=== PATIENT | female | born 1980 | race Two or more races ===

== ENCOUNTER 2018-01-01 12:33 | Emergency (ER) | payer SELFPAY ==
[~2018-01-01] VITALS: Ht 157.5 cm; Wt 130.3 kg
[2018-01-01 13:13] VITALS: BP 129/71
[2018-01-01 13:19] LABS: Basophils # (auto) 0 uL; Basophils % (auto) 0.5 % (0.0-2.0); Eosinophils # (auto) 0.2 uL; Eosinophils % (auto) 2.5 % (0.0-7.0); Hematocrit 43.2 % (36.0-46.0); Hemoglobin 14.5 g/dL (12.2-16.2); Lymphocytes # (auto) 1.6 uL; Lymphocytes % (auto) 19.3 % (10.0-50.0); Mean Corpuscular Hemoglobin 30.8 pg (28.0-32.0); Mean Corpuscular Hgb Conc. 33.5 g/dL (32.0-36.0); Mean Corpuscular Volume 91.8 fL (80.0-100.0); Monocytes # (auto) 0.6 uL; Monocytes % (auto) 7.8 % (0.0-12.0); Neutrophils # (auto) 5.7 uL; Neutrophils % (auto) 69.9 % (37.0-80.0); Platelet Count (auto) 245 10^3/uL (140-450); Red Cell Distribution Width 13.6 % (11.8-14.3); White Blood Cell 8.2 10^3/uL (4.4-10.8)
[2018-01-01 13:38] LABS: Albumin 3.6 g/dL (3.4-5.0); BUN/Creatinine Ratio 15.2; Bilirubin, Total 0.4 mg/dL (0.2-1.0); Calcium 9.1 mg/dL (8.5-10.1); Potassium 4.3 mmol/L (3.5-5.1); Total Protein 7.9 g/dL (6.4-8.2)
[2018-01-01 14:14] LABS: Urine Bacteria NONE SEEN /hpf (None Seen); Urine Blood TRACE /uL (Negative); Urine Mucus FEW (None Seen); Urine WBC 6 /hpf (0 - 5)
[2018-01-01] MEDS ORDERED: MECLIZINE HCL 25 MG TAB PO ONE (14:30)
== END 2018-01-01 14:26 | disposition home or self-care (01) ==
LOC: ER 12:34
DX: F41.1 Generalized anxiety disorder (principal)
CPT/HCPCS: 36415; 70450; 80053; 81001; 81025; 85025

== ENCOUNTER 2018-04-07 14:25 | Emergency (ER) | payer SELFPAY ==
[~2018-04-07] VITALS: Ht 157.5 cm; Wt 117.9 kg
[2018-04-07 14:30] VITALS: BP 174/86
== END 2018-04-07 23:20 | disposition left against medical advice (07) ==
LOC: ER 14:31
DX: R10.9 Unspecified abdominal pain (principal); Z53.21 Procedure and treatment not carried out due to patient leaving prior to being seen by health care provider

== ENCOUNTER 2018-11-11 20:50 | Emergency (ER) | payer SELFPAY ==
[~2018-11-11] VITALS: Ht 157.5 cm; Wt 117.9 kg
[2018-11-12 00:25] VITALS: BP 140/76
[2018-11-12] MEDS ORDERED: BACLOFEN 10 MG TAB PO ONE (01:00)
[2018-11-12] MEDS ORDERED: ACETAMINOPHEN/CODEINE#3 (300/30mg) TAB PO ONE (01:00)
[2018-11-12] MEDS ORDERED: DexAMETHasone SOD PHOS 10MG/1ML VIAL INJ IM ONE (01:00)
== END 2018-11-12 01:30 | disposition home or self-care (01) ==
LOC: ER 20:50
DX: S46.912A Strain of unspecified muscle, fascia and tendon at shoulder and upper arm level, left arm, initial encounter (principal); Z98.51 Tubal ligation status; X50.0XXA Overexertion from strenuous movement or load, initial encounter; Y93.89 Activity, other specified; Y99.8 Other external cause status; Y92.89 Other specified places as the place of occurrence of the external cause
CPT/HCPCS: 73030; 96372; 99283; J1100

== ENCOUNTER 2019-02-21 16:01 | Emergency (ER) | payer OTHER ==
[~2019-02-21] VITALS: Ht 157.5 cm; Wt 123.4 kg
[2019-02-21 16:40] VITALS: BP 134/68
[2019-02-21] MEDS ORDERED: methylPREDNISolone SOD SUCC 125 MG/2 ML VL IM ONE (19:00)
[2019-02-21] MEDS ORDERED: KETOROLAC TROMETH 60MG/2ML VIAL IM ONE (19:00)
== END 2019-02-21 19:53 | disposition home or self-care (01) ==
LOC: ER 16:01
DX: S43.402A Unspecified sprain of left shoulder joint, initial encounter (principal); X50.0XXA Overexertion from strenuous movement or load, initial encounter; Y93.89 Activity, other specified; Y92.89 Other specified places as the place of occurrence of the external cause; Y99.0 Civilian activity done for income or pay
CPT/HCPCS: 73030; 96372; 99283; J1885; J2930

== ENCOUNTER 2022-12-27 15:59 | Emergency (ER) | payer MEDICAID ==
[~2022-12-27] VITALS: Ht 157.5 cm; Wt 127.0 kg
[2022-12-27 16:33] LABS: Urine Bacteria FEW /hpf (None Seen); Urine Blood Negative /uL (Negative); Urine Clarity Clear (Clear); Urine Color Yellow (Yellow); Urine Protein, UAD Negative (Negative); Urine Specific Gravity 1.026 (1.001-1.035); Urine Urobilinogen Normal (Negative); Urine WBC 1 /hpf (0 - 5); Urine pH 5.5 (5.0-8.0)
[2022-12-27 16:49] LABS: Basophils # (auto) 0 10 ^3/uL (0-0.2); Basophils % (auto) 0.5 % (0.0-2.0); Eosinophils # (auto) 0.3 10 ^3/uL (0-0.8); Eosinophils % (auto) 2.8 % (0.0-7.0); Hematocrit 38.5 % (36.0-46.0); Hemoglobin 12.9 g/dL (12.2-16.2); Lymphocytes # (auto) 1.6 10 ^3/uL (0.4-5.4); Lymphocytes % (auto) 17.3 % (10.0-50.0); Mean Corpuscular Hemoglobin 30.3 pg (28.0-32.0); Mean Corpuscular Hgb Conc. 33.5 g/dL (32.0-36.0); Mean Corpuscular Volume 90.5 fL (80.0-100.0); Monocytes # (auto) 0.7 10 ^3/uL (0-1.3); Monocytes % (auto) 7.6 % (0.0-12.0); Neutrophils # (auto) 6.4 10 ^3/uL (1.6-8.6); Neutrophils % (auto) 71.8 % (37.0-80.0); Red Blood Cells 4.26 10^6/uL (4.0-5.20); Red Cell Distribution Width 14.4 % (11.8-14.3)
[2022-12-27 17:11] LABS: Alanine Aminotransferase 29 U/L (7-40); Albumin 4.1 g/dL (3.2-4.8); Alkaline Phosphatase 101 U/L (46-116); Anion Gap 5 (5-15); Aspartate Aminotransferase 16 U/L (13-40); BUN/Creatinine Ratio 19.5 (10.0-20.0); Bilirubin, Total 0.3 mg/dL (0.2-1.0); Blood Urea Nitrogen 15 mg/dL (9-23); Calcium 8.9 mg/dL (8.7-10.4); Carbon Dioxide 28 mmol/L (20-30); Chloride 105 mmol/L (98-107); Glucose 127 mg/dL (74-106); Lipase 47 U/L (12-53); Sodium 138 mmol/L (136-145); Total Protein 6.9 g/dL (5.7-8.2)
[2022-12-27] MEDS ORDERED: ONDANSETRON HCL 4 MG/2 ML VIAL IM ONE (18:30)
[2022-12-27] MEDS ORDERED: KETOROLAC TROMETH 60MG/2ML VIAL IM ONE (18:30)
[2022-12-27] MEDS ORDERED: MORPHINE SULFATE INJ 2 MG/ml SYRG IM ONE (18:30)
[2022-12-27] MEDS ORDERED: HYDR-4902 PO (18:32)
[2022-12-27] MEDS ORDERED: ZOFR4T PO (18:32)
[2022-12-27] MEDS ORDERED: DOCU-94 PO (18:32)
[2022-12-27 18:42] VITALS: BP 142/60; PULSE 63; RESP 18; TEMP 98.1; O2SAT 99
== END 2022-12-27 19:12 | disposition home or self-care (01) ==
LOC: ER 15:59
DX: R10.33 Periumbilical pain (principal); K42.9 Umbilical hernia without obstruction or gangrene; K80.20 Calculus of gallbladder without cholecystitis without obstruction; Z98.890 Other specified postprocedural states; Z98.51 Tubal ligation status
CPT/HCPCS: 36415; 74176; 80053; 81001; 81025; 83690; 85025; 96372; 99285; J1885; J2405; J7030

== ENCOUNTER 2023-04-10 11:48 | Emergency (ER) | payer SELFPAY ==
[~2023-04-10] VITALS: Ht 157.5 cm; Wt 134.1 kg
[~2023-04-10 11:48] MED LIST: DOCU-94 PO; HYDR-4902 PO; ZOFR4T PO
[2023-04-10 13:12] VITALS: BP 145/82; PULSE 77; RESP 18; O2SAT 97
[2023-04-10] MEDS ORDERED: ACETAMINOPHEN 500 MG TAB PO ONE (13:15)
[2023-04-10] MEDS ORDERED: cefTRIAXone SOD 1,000 MG VL IM ONE (13:15)
[2023-04-10] MEDS ORDERED: AZIT500T66 PO (13:18)
[2023-04-10] MEDS ORDERED: PROM1SOL4 PO (13:18)
[2023-04-10 13:46] VITALS: TEMP 99
== END 2023-04-10 13:48 | disposition home or self-care (01) ==
LOC: ER 11:48
DX: J03.90 Acute tonsillitis, unspecified (principal); J06.9 Acute upper respiratory infection, unspecified; I10 Essential (primary) hypertension; E66.01 Morbid (severe) obesity due to excess calories; Z68.43 Body mass index [BMI] 50.0-59.9, adult; Z98.51 Tubal ligation status
CPT/HCPCS: 71045; 96372; 99283; J0696

== ENCOUNTER 2023-07-13 08:54 | Emergency (ER) | payer SELFPAY ==
[~2023-07-13] VITALS: Ht 157.5 cm; Wt 134.7 kg
[~2023-07-13 08:54] MED LIST changes: +AZIT500T66 PO; +PROM1SOL4 PO
[2023-07-13 09:28] VITALS: BP 138/96; PULSE 66; RESP 18; TEMP 98; O2SAT 98
[2023-07-13] MEDS: KETOROLAC TROMETH 60MG/2ML VIAL IM ONE (10:46)
[2023-07-13] MEDS ORDERED: MELO7.5T7 PO (11:49)
== END 2023-07-13 11:59 | disposition home or self-care (01) ==
LOC: ER 08:54
DX: M54.2 Cervicalgia (principal); I10 Essential (primary) hypertension; F41.9 Anxiety disorder, unspecified; Z98.890 Other specified postprocedural states; Z79.899 Other long term (current) drug therapy
CPT/HCPCS: 72040; 96372; 99283; J1885

== ENCOUNTER 2023-08-13 20:09 | Emergency (ER) | payer MEDICAID ==
[~2023-08-13] VITALS: Ht 157.5 cm; Wt 131.8 kg
[~2023-08-13 20:09] MED LIST changes: +MELO7.5T7 PO
[2023-08-13 23:16] VITALS: BP 162/89; PULSE 64; RESP 18; TEMP 97.9; O2SAT 99
== END 2023-08-14 02:02 | disposition home or self-care (01) ==
LOC: ER 20:09
DX: K42.9 Umbilical hernia without obstruction or gangrene (principal); N20.0 Calculus of kidney; I10 Essential (primary) hypertension; Z98.51 Tubal ligation status
CPT/HCPCS: 74176

== ENCOUNTER 2023-10-24 10:54 | Emergency (ER) | payer SELFPAY ==
[~2023-10-24] VITALS: Ht 157.5 cm; Wt 127.0 kg
[2023-10-24 11:46] LABS: Basophils # (auto) 0.1 10 ^3/uL (0-0.2); Basophils % (auto) 0.8 % (0.0-2.0); Eosinophils # (auto) 0.3 10 ^3/uL (0-0.8); Eosinophils % (auto) 3.7 % (0.0-7.0); Hematocrit 40.4 % (36.0-46.0); Hemoglobin 13.8 g/dL (12.2-16.2); Lymphocytes # (auto) 1.9 10 ^3/uL (0.4-5.4); Lymphocytes % (auto) 23.3 % (10.0-50.0); Mean Corpuscular Hemoglobin 31.1 pg (28.0-32.0); Mean Corpuscular Hgb Conc. 34.1 g/dL (32.0-36.0); Mean Corpuscular Volume 91.3 fL (80.0-100.0); Monocytes # (auto) 0.6 10 ^3/uL (0-1.3); Monocytes % (auto) 8.1 % (0.0-12.0); Neutrophils # (auto) 5.2 10 ^3/uL (1.6-8.6); Neutrophils % (auto) 64.1 % (37.0-80.0); Red Blood Cells 4.43 10^6/uL (4.0-5.20); Red Cell Distribution Width 14.1 % (11.8-14.3); White Blood Cell 8.1 10^3/uL (4.4-10.8)
[2023-10-24 11:53] LABS: Chloride 107 mmol/L (98-107); Potassium 4.2 mmol/L (3.5-5.1); Sodium 140 mmol/L (136-145)
[2023-10-24 11:54] LABS: Anion Gap 4 (5-15); Calcium 9.6 mg/dL (8.7-10.4); Carbon Dioxide 29 mmol/L (20-30)
[2023-10-24 11:59] LABS: Glucose 119 mg/dL (74-106)
[2023-10-24 12:21] LABS: BUN/Creatinine Ratio 13.1 (10.0-20.0); Blood Urea Nitrogen 11 mg/dL (9-23)
[2023-10-24] MEDS ORDERED: PANT40TA2 PO (14:10)
[2023-10-24 14:18] VITALS: BP 136/72; PULSE 68; RESP 16; TEMP 98.2; O2SAT 98
== END 2023-10-24 14:21 | disposition home or self-care (01) ==
LOC: ER 10:54
DX: K29.70 Gastritis, unspecified, without bleeding (principal); I10 Essential (primary) hypertension; Z98.51 Tubal ligation status; Z98.890 Other specified postprocedural states; Z98.891 History of uterine scar from previous surgery; Z79.899 Other long term (current) drug therapy
CPT/HCPCS: 36415; 80048; 85025

== ENCOUNTER 2024-02-23 16:32 | Emergency (ER) | payer SELFPAY ==
[~2024-02-23] VITALS: Ht 157.5 cm; Wt 63.1 kg
[~2024-02-23 16:32] MED LIST changes: +PANT40TA2 PO
[2024-02-23 18:21] VITALS: BP 161/70; PULSE 69; RESP 16; TEMP 98; O2SAT 100
[2024-02-23] MEDS ORDERED: IBUP-1456 PO (18:58)
--- NOTE | 2024-02-23 18:58 | ED.PDOC ---
Musculoskeletal HPI Comments 43 year old female presents to ER with complaints of left ankle pain x 3 days. Patient with PMH significant for chronic left ankle pain states that she started experiencing worsening left ankle pain/mild swelling surrounding left ankle 3 days ago s/p getting PRP injections to left ankle by her test deck supervisor. She reports 8/10 pain localized to left ankle without radiation. Denies use of medications for current symptoms. Patient presents to ER ambulatory on arrival, with steady gait, in no distress and states she is following up with her test deck supervisor again this week. Patient also states has been out of her blood pressure medications x 2 months, but is unsure the name/dosage of the blood pressure medications she is supposed to be taking, blood pressure on arrival 161/70, denying any hypertensive symptoms. Denies fever, body aches, chills, further skin changes, calf pain, shortness of breath or any further symptoms/complaints Chief Complaint: Lower Extremity Time Seen by MD: 18:10 Primary Care Provider: UNKNOWN Reviewed Notes: Nurses Notes, Medications, Allergies Allergies: Coded Allergies: NO KNOWN ALLERGIES (Unverified , 02/21/19) Home Meds Active Scripts Ibuprofen (Ibuprofen) 800 Mg Tab, 1 TAB PO TID PRN, #30 TAB 0 Refills Prov:RADHA DILLARD 02/23/24 Pantoprazole Sodium Sesquihydr (Protonix) 40 Mg Tab, 40 MG PO DAILY for 10 Days, #10 TAB Prov:DENVER HIGGINS MD 10/24/23 Meloxicam (Meloxicam) 7.5 Mg Tab, 1 TAB PO DAILYP PRN for 30 Days, #30 TAB 0 Refills Prov:AMI ABBOTT NP 07/13/23 Azithromycin (Azithromycin) 500 Mg Tab, 1 TAB PO DAILY, #5 TAB Prov:ED MANSFIELD 04/10/23 Promethazine-Dm (Promethazine Dm 6.25-15 mg/5Ml) 1 Mery Mery, 5 ML PO TID, #160 ML Prov:ED MANSFIELD 04/10/23 Docusate Sodium (Colace) 100 Mg Cap, 1 CAP PO BID for 10 Days, #20 CAP As needed for constipaton Prov:MINERVA SAMUELS HARNESS BUILDER 12/27/22 Ondansetron Odt 4MG Tab (ZOFRAN PO) 4 Mg Tb, 1 TAB PO Q8HR, #20 TAB ODT TAB-DISSOLVE IN MOUTH, THEN SWALLOW as needed for nausea vomit Prov:MINERVA SAMUELS Karrie COLMENARES 12/27/22 Hydrocodone-Acetaminophen (Hydrocodone Bitartrate/AC 5-325 mg) 1 Tab Tab, 1 TAB PO Q6HR, #12 TAB as needed for pain Prov:MINERVA SAMUELS HARNESS BUILDER 12/27/22 Information Source: Patient Mode of Arrival: Ambulatory Past Medical History PAST MEDICAL HISTORY: Anxiety, HTN Past Medical History (Other): Chronic left ankle pain Surgical History: , Tubal Ligation SPOOL FIXER History: Denies all SPOOL FIXER Hx Family History Family History: Unknown Social History Smoker: Non-Smoker Alcohol: Denies ETOH Use Drugs: Denies Drug Use Lives In: Home Constitutional: denies: chills, diaphoresis, fatigue, fever, malaise, sweats, weakness, others EENTM: denies: blurred vision, double vision, ear bleeding, ear discharge, ear drainage, ear pain, ear ringing, eye pain, eye redness, hearing loss, mouth pain, mouth swelling, nasal discharge, nose bleeding, nose congestion, nose pain, photophobia, tearing, throat pain, throat swelling, voice changes, others Respiratory: denies: cough, hemoptysis, orthopnea, SOB at rest, shortness of breath, SOB with excertion, stridor, wheezing, others Cardiovascular: denies: chest pain, dizzy spells, diaphoresis, Dyspnea on exertion, edema, irregular heart beat, left arm pain, lightheadedness, palpitations, PND, syncope, others Gastrointestinal: denies: abdomen distended, abdominal pain, blood streaked bowels, constipated, diarrhea, dysphagia, difficulty swallowing, hematemesis, melena, nausea, poor appetite, poor fluid intake, rectal bleeding, rectal pain, vomiting, others Genitourinary: denies: abnormal vagina bleeding, burning, dyspareunia, dysuria, flank pain, frequency, hematuria, incontinence, pain, , vagina discharge, urgency, others Neurological: denies: dizziness, fainting, headache, left sided numbness, left sided weakness, numbness, paresthesia, pre-existing deficit, right sided numbness, right sided weakness, seizure, speech problems, tingling, tremors, weakness, others Musculoskeletal: reports: others (As stated in HPI) Integumetry: reports: others (As stated in HPI) Allergic/Immunocompromised: denies: Difficulty Healing, Frequent Infections, Hives, Itching, others Hematologic/Lymphatic: denies: anemia, blood clots, easy bleeding, easy bruising, swollen glands, others Endocrine: denies: excessive hunger, excessive sweating, excessive thirst, excessive urination, flushing, intolerance to cold, intolerance to heat, unexplained weight gain, unexplained weight loss, others Psychiatric: denies: anxiety, bipolar disorder, depression, hopeless, panic disorder, schizophrenia, sleepless, suicidal, others Physical Exam General Appearance: No Apparent Distress HEENT: PERRL/EOMI Neck: Full Range of Motion, Non-Tender, Normal Respiratory: Chest Non-Tender, Lungs Clear, No Accessory Muscle Use, No Respiratory Distress, Normal Breath Sounds Cardiovascular: No Murmur, No Gallop, Regular Rate/Rhythm Breast Exam: Deferred Gastrointestinal: NOT DONE Genitalia: Deferred Pelvic: Deferred Rectal: Deferred Extremities: No calf tenderness, Normal capillary refill, Normal range of motion Musculoskeletal : Extremity Location: Ankle (Slight TTP/minimal swelling localized to left lateral malleolus. No erythema/further skin changes noted. Pulses intact. Steady gait appreciated) Neurologic: Alert, first aid trainer II-XII nml as Tested, No Motor Deficits, Normal Affect, Normal Mood, No Sensory Deficits Cerebellar Function: Normal Reflexes: Normal Skin: Dry, Normal Color, Warm Peripheral Pulses: 2+ dorsalis pedis (R), 2+ dorsalis pedis (L) Lymphatic: No Adenopathy Was a procedure done? Was a procedure done?: No Sedation Sedation?: No Differential Diagnosis EXT Differential Diagnosis: Cellulitis, Fracture, Dislocation, Neurovascular injury X-Ray, Labs, Meds, VS Vital Signs Date Time Temp Pulse Resp B/P (MAP) Pulse Ox O2 Delivery O2 Flow Rate FiO2 02/23/24 18:21 69 16 100 Room Air 02/23/24 18:21 98.0 69 16 161/70 (100) 100 98.0 02/23/24 17:27 98.0 69 16 161/70 (100) 100 Current Medications Medications (Trade) Dose Ordered Sig/Jodi Route Start Time Stop Time Status Last Admin Ketorolac Tromethamine (Toradol Injection) 60 mg ONCE ONCE IM 02/23/24 19:00 02/23/24 19:04 DC 02/23/24 19:07 Toradol 60 mg IM ordered Patient neurovascularly intact Advised on rest/no strenuous activity, elevation and alternate ice on/off as needed for pain/swelling Advised to monitor/record blood pressure readings closely at home Patient notes she is following up with her test deck supervisor again this week Patient provided information with regards to local PCPs and advised to follow up in 1-2 days Patient verbalized understanding and agreeable with current plan of care Advised to return to ER immediately if symptoms worsen Time of 1ST Reevaluation: 18:24 Reevaluation 1ST: N/A Patient Education/Counseling: Diagnosis, Treatment, Prognosis, Need For Follow Up Family Education/Counseling: No Family Present Departure 1 Departure Time of Disposition: 18:52 Impression: Primary Impression: Chronic pain of left ankle Disposition: 01 HOME / SELF CARE / HOMELESS Condition: Stable e-Prescriptions Ibuprofen (Ibuprofen) 800 Mg Tab 1 TAB PO TID PRN, #30 TAB 0 Refills Prov: RADHA DILLARD 02/23/24 Discharged With: Self Critical Care Note Critical Care Time?: No Stability Stability form required: No Heart Score Heart Score: Heart Score Response (Comments) Value History N/A 0 EKG N/A 0 Age N/A 0 Risk Factors N/A 0 Troponin N/A 0 Total 0 RADHA DILLARD Feb 23, 2024 18:58
[2024-02-23] MEDS: KETOROLAC TROMETH 60MG/2ML VIAL IM ONE (19:07)
== END 2024-02-23 19:38 | disposition home or self-care (01) ==
LOC: ER 16:32
DX: G89.29 Other chronic pain (principal); M25.572 Pain in left ankle and joints of left foot; I10 Essential (primary) hypertension; F41.9 Anxiety disorder, unspecified; Z79.899 Other long term (current) drug therapy; Z98.51 Tubal ligation status; Z98.890 Other specified postprocedural states
CPT/HCPCS: 96372; 99283; J1885

== ENCOUNTER 2024-03-19 15:55 | Emergency (ER) | payer MEDICAID ==
[~2024-03-19] VITALS: Ht 157.5 cm; Wt 113.0 kg
[~2024-03-19 15:55] MED LIST changes: +IBUP-1456 PO
--- NOTE | 2024-03-19 16:08 | ED.PDOC ---
History of Present Illness HPI Comments 43 year old female presents to the ED with chief complaint of hypertension. Patient reports that she had been experiencing headache with associated shakiness and nausea at work today, so she had her BP checked and it was high, advised to go to the local urgent care. Patient relays that in the , her BP was noted to be 193/106, advised to come to the ED for further evaluation. Patient states she has history of HTN and was on medication a year ago until she lost her insurance, being off her medication since then. Patient notes her family has a history of DM. Patient denies any vomiting, chest pain, SOB, dizziness, fever, chills, or dysuria. Time Seen by MD: 16:04 Primary Care Provider: UNKNOWN Reviewed Notes: Nurses Notes, Medications, Allergies Allergies: Coded Allergies: NO KNOWN ALLERGIES (Unverified , 02/21/19) Home Meds Active Scripts Losartan Potassium (Losartan Potassium) 50 Mg Tab, 1 TAB PO DAILY, #30 TAB 5 Refills Prov:FRANCIS ESPARZA MD 03/19/24 Ibuprofen (Ibuprofen) 800 Mg Tab, 1 TAB PO TID PRN, #30 TAB 0 Refills Prov:RADHA DILLARD 02/23/24 Pantoprazole Sodium Sesquihydr (Protonix) 40 Mg Tab, 40 MG PO DAILY for 10 Days, #10 TAB Prov:DENVER HIGGINS MD 10/24/23 Meloxicam (Meloxicam) 7.5 Mg Tab, 1 TAB PO DAILYP PRN for 30 Days, #30 TAB 0 Refills Prov:AMI ABBOTT NP 07/13/23 Azithromycin (Azithromycin) 500 Mg Tab, 1 TAB PO DAILY, #5 TAB Prov:ED MANSFIELD 04/10/23 Promethazine-Dm (Promethazine Dm 6.25-15 mg/5Ml) 1 Mery Mery, 5 ML PO TID, #160 ML Prov:ED MANSFIELD 04/10/23 Docusate Sodium (Colace) 100 Mg Cap, 1 CAP PO BID for 10 Days, #20 CAP As needed for constipaton Prov:MINERVA SAMUELS TABLE LEVER OPERATOR 12/27/22 Ondansetron Odt 4MG Tab (ZOFRAN PO) 4 Mg Tb, 1 TAB PO Q8HR, #20 TAB ODT TAB-DISSOLVE IN MOUTH, THEN SWALLOW as needed for nausea vomit Prov:MINERVA SAMUELS Karrie TABLE LEVER OPERATOR 12/27/22 Hydrocodone-Acetaminophen (Hydrocodone Bitartrate/AC 5-325 mg) 1 Tab Tab, 1 TAB PO Q6HR, #12 TAB as needed for pain Prov:MINERVA SAMUELS TABLE LEVER OPERATOR 12/27/22 Information Source: Patient Mode of Arrival: Ambulatory Severity: Moderate Timing: Hours Duration: Since onset Prehospital treatment: None Medication Refill: For: Hypertension Past Medical History PAST MEDICAL HISTORY: Anxiety, HTN Surgical History: , Tubal Ligation TEMPLATE FITTER History: Denies all TEMPLATE FITTER Hx Family History Family History: Reviewed,noncontributory to illness, Family hx of DM Social History Smoker: Non-Smoker Alcohol: Denies ETOH Use Drugs: Denies Drug Use Lives In: Home Constitutional: denies: chills, diaphoresis, fatigue, fever, malaise, sweats, weakness, others EENTM: denies: blurred vision, double vision, ear bleeding, ear discharge, ear drainage, ear pain, ear ringing, eye pain, eye redness, hearing loss, mouth pain, mouth swelling, nasal discharge, nose bleeding, nose congestion, nose pain, photophobia, tearing, throat pain, throat swelling, voice changes, others Respiratory: denies: cough, hemoptysis, orthopnea, SOB at rest, shortness of breath, SOB with excertion, stridor, wheezing, others Cardiovascular: denies: chest pain, dizzy spells, diaphoresis, Dyspnea on exertion, edema, irregular heart beat, left arm pain, lightheadedness, palpitations, PND, syncope, others Gastrointestinal: reports: nausea; denies: abdomen distended, abdominal pain, blood streaked bowels, constipated, diarrhea, dysphagia, difficulty swallowing, hematemesis, melena, poor appetite, poor fluid intake, rectal bleeding, rectal pain, vomiting, others Genitourinary: denies: abnormal vagina bleeding, burning, dyspareunia, dysuria, flank pain, frequency, hematuria, incontinence, pain, , vagina discharge, urgency, others Neurological: reports: headache, tremors; denies: dizziness, fainting, left sided numbness, left sided weakness, numbness, paresthesia, pre-existing deficit, right sided numbness, right sided weakness, seizure, speech problems, tingling, weakness, others Musculoskeletal: denies: back pain, gout, joint pain, joint swelling, muscle pain, muscle stiffness, neck pain, others Integumetry: denies: bruises, change in color, change in hair/nails, dryness, laceration, lesions, lumps, rash, wounds, others Allergic/Immunocompromised: denies: Difficulty Healing, Frequent Infections, Hives, Itching, others Hematologic/Lymphatic: denies: anemia, blood clots, easy bleeding, easy bruising, swollen glands, others Endocrine: denies: excessive hunger, excessive sweating, excessive thirst, excessive urination, flushing, intolerance to cold, intolerance to heat, unexplained weight gain, unexplained weight loss, others Psychiatric: denies: anxiety, bipolar disorder, depression, hopeless, panic disorder, schizophrenia, sleepless, suicidal, others All Other Systems: Reviewed and Negative Physical Exam General Appearance: No Apparent Distress, Obese HEENT: Other (Pupils symmetric, no facial asymmetry, moist mucous membranes) Neck: Full Range of Motion, Normal Inspection Respiratory: Lungs Clear, No Accessory Muscle Use, No Respiratory Distress, Normal Breath Sounds Cardiovascular: No Edema, No JVD, Regular Rate/Rhythm Breast Exam: Deferred Gastrointestinal: Non Tender, Soft Genitalia: Deferred Pelvic: Deferred Rectal: Deferred Extremities: Normal inspection, Normal range of motion, Non-tender, No pedal edema Neurologic: Alert (Oriented x4), Normal Affect, Normal Mood, Other (Ambulatory without difficulty. No gross focal deficit.) Cerebellar Function: NOT DONE Reflexes: NOT DONE Skin: Dry, Normal Color, Warm Lymphatic: NOT DONE Was a procedure done? Was a procedure done?: No EKG EKG : Comments Sinus rhythm, rate 75, normal intervals, left axis deviation, nonspecific T changes Differential Dx Considerations may include: Hypertension, CHF, renal disease, mi, among others X-Ray, Labs, Meds, VS Vital Signs Date Time Temp Pulse Resp B/P (MAP) Pulse Ox O2 Delivery O2 Flow Rate FiO2 03/19/24 17:54 73 18 73 Room Air* 0 21 03/19/24 17:54 98.0 73 18 133/62 (85) 97 98.0 03/19/24 17:27 75 03/19/24 16:06 98.0 68 17 150/69 (96) 100 Lab Test 03/19/24 18:04 03/19/24 17:03 03/19/24 16:32 Range/Units Troponin I High Sensitivity 3 L 4 </=34 ng/L White Blood Count 9.1 4.4-10.8 10^3/uL Red Blood Count 4.56 4.0-5.20 10^6/uL Hemoglobin 14.2 12.2-16.2 g/dL Hematocrit 41.5 36.0-46.0 % Mean Corpuscular Volume 91.1 80.0-100.0 fL Mean Corpuscular Hemoglobin 31.2 28.0-32.0 pg Mean Corpuscular Hemoglobin Concent 34.2 32.0-36.0 g/dL Red Cell Distribution Width 14.4 H 11.8-14.3 % Platelet Count 259 140-450 10^3/uL Mean Platelet Volume 8.0 6.9-10.8 fL Neutrophils (%) (Auto) 66.2 37.0-80.0 % Lymphocytes (%) (Auto) 23.2 10.0-50.0 % Monocytes (%) (Auto) 6.9 0.0-12.0 % Eosinophils (%) (Auto) 3.0 0.0-7.0 % Basophils (%) (Auto) 0.7 0.0-2.0 % Neutrophils # (Auto) 6.0 1.6-8.6 10 ^3/uL Lymphocytes # (Auto) 2.1 0.4-5.4 10 ^3/uL Monocytes # (Auto) 0.6 0-1.3 10 ^3/uL Eosinophils # (Auto) 0.3 0-0.8 10 ^3/uL Basophils # (Auto) 0.1 0-0.2 10 ^3/uL Nucleated Red Blood Cells 0.1 % Sodium Level 140 136-145 mmol/L Potassium Level 4.1 3.5-5.1 mmol/L Chloride Level 104 98-107 mmol/L Carbon Dioxide Level 28 20-31 mmol/L Anion Gap 8 5-15 Blood Urea Nitrogen 15 9-23 mg/dL Creatinine 0.77 0.550-1.02 mg/dL Glomerular Filtration Rate Calc 99 >90 mL/min BUN/Creatinine Ratio 19.5 10.0-20.0 Serum Glucose 97 74-106 mg/dL Hemoglobin A1c 5.8 H <5.7 % A1C Calcium Level 9.9 8.7-10.4 mg/dL B-Type Natriuretic Peptide 53.81 0-100 pg/mL Beta HCG, Quantitative < 0.0 L 1.5-4.2 mIU/mL Urine Color Light-yellow Yellow Urine Clarity Turbid H Clear Urine pH 6.0 5.0-9.0 Urine Specific [place] 1.021 1.001-1.035 Urine Protein Negative Negative Urine Ketones Negative Negative Urine Blood 3+ H Negative /uL Urine Nitrite Negative Negative Urine Bilirubin Negative Negative Urine Urobilinogen Normal Negative mg/dL Urine Leukocyte Esterase Negative Negative /uL Urine RBC 1 0 - 4 /hpf Urine WBC <1 0 - 5 /hpf Urine Squamous Epithelial Cells Mod <5 /hpf Urine Amorphous Crystals Few None Seen /hpf Urine Bacteria Few H None Seen /hpf Urine Mucus Few None Seen Urine Glucose Normal Normal mg/dL Current Medications Medications (Trade) Dose Ordered Sig/Jodi Route Start Time Stop Time Status Last Admin Ondansetron HCl (Zofran Po) 4 mg ONCE ONCE PO 03/19/24 16:15 03/19/24 16:16 DC 03/19/24 17:52 Acetaminophen (Tylenol Tablet) 1,000 mg ONCE ONCE PO 03/19/24 16:15 03/19/24 16:16 DC 03/19/24 17:52 Chest XR: FINDINGS: Lines and Tubes: None Lungs: Mild congestion Pleura: No effusion. No pneumothorax. Cardiomediastinal contours: Unremarkable Bones: Unremarkable IMPRESSION: Mild congestion. X-Ray, Labs, Meds, VS Comment 43-year-old female with a history of hypertension and anxiety referred by urgent care for evaluation of high blood pressure. Patient notes feeling shaky, having a headache and nausea. Vitals remarkable for BP 150/69 Exam unremarkable Rhythm strip independently interpreted by me: Sinus rhythm, rate 88, no ectopy. Chest x-ray IMPRESSION: Mild congestion. CBC, CMP, BNP and 1st troponin unremarkable for any abnormality of acute significance HCG negative UA unremarkable Hemoglobin A1c 5.8 Patient treated with the following in the ED: Tylenol 1 g p.o., Zofran ODT 4 mg p.o. On re-evaluation, patient is well-appearing and states headache and nausea have resolved. Blood pressure is 133/62. Hospitalization was considered, however patient had rapid improvement of symptoms without intervention during her stay in the ED. Blood pressure was not elevated to the point that she required medication in the ED. I no longer feel hospitalization is necessary, and I am co mfortable discharging the patient with a prescription for blood pressure medication and close follow-up with her primary doctor. Rx losartan Images Reviewed?: Images reviewed and evaluated by me Time of 1ST Reevaluation: 15:04 Reevaluation 1ST: Unchanged Time of 2ND Reevaluation: 18:19 Reevaluation 2ND: Improved Patient Education/Counseling: Diagnosis, Treatment Family Education/Counseling: No Family Present Departure 1 Departure Time of Disposition: 18:20 Impression: Primary Impression: Hypertension Qualified Codes: I10 - Essential (primary) hypertension Disposition: HOME / SELF CARE / HOMELESS Condition: Stable Additional Instructions: Your blood tests were unremarkable except for an elevated hemoglobin A1c of 5.8. This indicates you may be prediabetic. Your EKG was normal. Follow-up with your primary doctor in 1-2 days for re-evaluation. I have prescribed blood pressure medication. e-Prescriptions Losartan Potassium (Losartan Potassium) 50 Mg Tab 1 TAB PO DAILY, #30 TAB 5 Refills Prov: FRANCIS ESPARZA MD 03/19/24 Discharged With: Self Critical Care Note Critical Care Time?: No Stability Stability form required: No Heart Score Heart Score: Heart Score Response (Comments) Value History N/A 0 EKG N/A 0 Age N/A 0 Risk Factors N/A 0 Troponin N/A 0 Total 0 I personally scribed for FRANCIS ESPARZA MD ([email or web address]) on 03/19/24 at 16:08. Electronically submitted by Castro Salinas ([email or web address]). I personally scribed for FRANCIS ESPARZA MD ([email or web address]) on 03/19/24 at 17:02. Electronically submitted by Castro Salinas ([email or web address]). FRANCIS ESPARZA MD Mar 19, 2024 16:08
[2024-03-19 16:46] LABS: Urine Amorphous Crystal FEW /hpf (None Seen); Urine Bacteria FEW /hpf (None Seen); Urine Blood 3+ /uL (Negative); Urine Clarity Turbid (Clear); Urine Color Light-Yellow (Yellow); Urine Mucus FEW (None Seen); Urine Protein, UAD Negative (Negative); Urine Specific Gravity 1.021 (1.001-1.035); Urine Urobilinogen Normal (Negative); Urine WBC <1 /hpf (0 - 5)
--- NOTE | 2024-03-19 16:49 | DVH ---
CHEST RADIOGRAPH Indication: hi bp Technique: Single frontal view of the chest was obtained COMPARISON: XY CHEST XRAY 1 VIEW on DOS: 04/10/23, XY CHEST PORTABLE on DOS: 10/30/22 FINDINGS: Lines and Tubes: None Lungs: Mild congestion Pleura: No effusion. No pneumothorax. Cardiomediastinal contours: Unremarkable Bones: Unremarkable IMPRESSION: Mild congestion.
[2024-03-19 17:23] LABS: Basophils # (auto) 0.1 10 ^3/uL (0-0.2); Basophils % (auto) 0.7 % (0.0-2.0); Eosinophils # (auto) 0.3 10 ^3/uL (0-0.8); Hematocrit 41.5 % (36.0-46.0); Hemoglobin 14.2 g/dL (12.2-16.2); Lymphocytes # (auto) 2.1 10 ^3/uL (0.4-5.4); Lymphocytes % (auto) 23.2 % (10.0-50.0); Mean Corpuscular Hemoglobin 31.2 pg (28.0-32.0); Mean Corpuscular Hgb Conc. 34.2 g/dL (32.0-36.0); Mean Corpuscular Volume 91.1 fL (80.0-100.0); Monocytes # (auto) 0.6 10 ^3/uL (0-1.3); Monocytes % (auto) 6.9 % (0.0-12.0); Neutrophils % (auto) 66.2 % (37.0-80.0); Nucleated Red Blood Cells % 0.1 %; Platelet Count (auto) 259 10^3/uL (140-450); Red Blood Cells 4.56 10^6/uL (4.0-5.20); Red Cell Distribution Width 14.4 % (11.8-14.3); White Blood Cell 9.1 10^3/uL (4.4-10.8)
--- NOTE | 2024-03-19 17:28 | ECG ---
[facility] Test Date: 2024-03-19 Test Time: 17:27:45 Pat Name: BRENT BLACK Department: ER Room: Gender: F Cardiac Rehabilitation Program Director: GP : 1980 Requested By: FRANCIS ALEXANDRA Order Number: [id number] Reading MD: Dick Kee Measurements Intervals [place] Rate: 75 P: 44 HI: 160 QRS: -38 QRSD: 101 T: 57 QT: 400 QTc: 447 Interpretive Statements Sinus rhythm Left axis deviation Low voltage, precordial leads Electronically Signed On 03-24-2024 12:33:04 PST by Dick Kee Please click the below link to view image of tracing.
[2024-03-19 17:31] LABS: Chloride 104 mmol/L (98-107); Potassium 4.1 mmol/L (3.5-5.1); Sodium 140 mmol/L (136-145)
[2024-03-19 17:32] LABS: Anion Gap 8 (5-15); Calcium 9.9 mg/dL (8.7-10.4); Carbon Dioxide 28 mmol/L (20-31)
[2024-03-19 17:37] LABS: BUN/Creatinine Ratio 19.5 (10.0-20.0); Blood Urea Nitrogen 15 mg/dL (9-23); Glucose 97 mg/dL (74-106)
[2024-03-19] MEDS: ACETAMINOPHEN 500 MG TAB or CAP PO ONE (17:52)
[2024-03-19] MEDS: ONDANSETRON ODT 4 MG TAB PO ONE (17:52)
[2024-03-19 17:54] VITALS: BP 133/62; PULSE 73; RESP 18; TEMP 98; O2SAT 73
[2024-03-19] MEDS ORDERED: LOSA-534 PO (18:22)
== END 2024-03-19 18:40 | disposition home or self-care (01) ==
LOC: ER 15:55
DX: I10 Essential (primary) hypertension (principal); R10.2 Pelvic and perineal pain; Z79.899 Other long term (current) drug therapy; Z98.890 Other specified postprocedural states
CPT/HCPCS: 36415; 71045; 80048; 81001; 83036; 83880; 84484; 84702; 85025; 93005; 99285; Q0162

== ENCOUNTER 2024-07-27 17:19 | Emergency (ER) | payer MEDICAID, OTHER ==
[~2024-07-27] VITALS: Ht 157.5 cm; Wt 134.8 kg
[~2024-07-27 17:19] MED LIST changes: +LOSA-534 PO
[2024-07-27 17:59] LABS: Basophils # (auto) 0.1 10 ^3/uL (0-0.2); Basophils % (auto) 0.7 % (0.0-2.0); Eosinophils # (auto) 0.1 10 ^3/uL (0-0.8); Eosinophils % (auto) 1.4 % (0.0-7.0); Hematocrit 41.7 % (36.0-46.0); Hemoglobin 13.8 g/dL (12.2-16.2); Lymphocytes # (auto) 1.8 10 ^3/uL (0.4-5.4); Lymphocytes % (auto) 19.1 % (10.0-50.0); Mean Corpuscular Hemoglobin 31.1 pg (28.0-32.0); Mean Corpuscular Hgb Conc. 33.2 g/dL (32.0-36.0); Mean Corpuscular Volume 93.8 fL (80.0-100.0); Monocytes # (auto) 0.5 10 ^3/uL (0-1.3); Monocytes % (auto) 5.4 % (0.0-12.0); Neutrophils % (auto) 73.4 % (37.0-80.0); Platelet Count (auto) 250 10^3/uL (140-450); Red Blood Cells 4.44 10^6/uL (4.0-5.20); Red Cell Distribution Width 14.3 % (11.8-14.3); White Blood Cell 9.5 10^3/uL (4.4-10.8)
--- NOTE | 2024-07-27 18:12 | ED.PDOC ---
HPI Comments 44 y/o morbidly obese F, with PMHx of HTN presents to the ED for CC of chest pain. Patient states, that she has been experiencing substernal chest pain that occasionally radiates to her left arm x3days. Patient relays, that she recently started blood pressure medications [id number] ago; which have been non-optimal at stabilizing her hypertension. Patient denies shortness of breath, palpitations, numbness, or weakness. No other associated symptoms, modifiers, recent injuries or sick contacts present at this time. Chief Complaint: Chest Pain Time Seen by MD: 18:00 Primary Care Provider: du Reviewed Notes: Nurses Notes, Medications, Allergies Allergies: Coded Allergies: NO KNOWN ALLERGIES (Unverified , 02/21/19) Home Meds Active Scripts Losartan Potassium (Losartan Potassium) 50 Mg Tab, 1 TAB PO DAILY, #30 TAB 5 Refills Prov:FRANCIS ESPARZA MD 03/19/24 Ibuprofen (Ibuprofen) 800 Mg Tab, 1 TAB PO TID PRN, #30 TAB 0 Refills Prov:RADHA DILLARD 02/23/24 Pantoprazole Sodium Sesquihydr (Protonix) 40 Mg Tab, 40 MG PO DAILY for 10 Days, #10 TAB Prov:DENVER HIGGINS MD 10/24/23 Meloxicam (Meloxicam) 7.5 Mg Tab, 1 TAB PO DAILYP PRN for 30 Days, #30 TAB 0 Refills Prov:AMI ABBOTT NP 07/13/23 Azithromycin (Azithromycin) 500 Mg Tab, 1 TAB PO DAILY, #5 TAB Prov:ED MANSFIELD 04/10/23 Promethazine-Dm (Promethazine Dm 6.25-15 mg/5Ml) 1 Mery Mery, 5 ML PO TID, #160 ML Prov:ED MANSFIELD 04/10/23 Docusate Sodium (Colace) 100 Mg Cap, 1 CAP PO BID for 10 Days, #20 CAP As needed for constipaton Prov:MINERVA SAMUELS LICENSED ELECTRICIAN 12/27/22 Ondansetron Odt 4MG Tab (ZOFRAN PO) 4 Mg Tb, 1 TAB PO Q8HR, #20 TAB ODT TAB-DISSOLVE IN MOUTH, THEN SWALLOW as needed for nausea vomit Prov:MINERVA SAMUELS LICENSED ELECTRICIAN 12/27/22 Hydrocodone-Acetaminophen (Hydrocodone Bitartrate/AC 5-325 mg) 1 Tab Tab, 1 TAB PO Q6HR, #12 TAB as needed for pain Prov:MINERVA SAMUELS LICENSED ELECTRICIAN 12/27/22 Information Source: Patient Mode of Arrival: Ambulatory Severity: Moderate Timing: Days Duration: Since onset Prehospital treatment: None Location: Chest (L), Substernal Radiation: Arm (L) Onset: At Rest Cardiac Risk Factors: HTN PE Risk Factors: None History of: None Associated Signs and Symptoms: None Past Medical History PAST MEDICAL HISTORY: Anxiety, HTN Surgical History: , Tubal Ligation DIRECTOR DIGITAL CATALOGUE History: Denies all DIRECTOR DIGITAL CATALOGUE Hx Family History Family History: Reviewed,noncontributory to illness, Family hx of DM Social History Smoker: Non-Smoker Alcohol: Denies ETOH Use Drugs: Denies Drug Use Lives In: Home Constitutional: denies: chills, diaphoresis, fatigue, fever, malaise, sweats, weakness, others EENTM: denies: blurred vision, double vision, ear bleeding, ear discharge, ear drainage, ear pain, ear ringing, eye pain, eye redness, hearing loss, mouth pain, mouth swelling, nasal discharge, nose bleeding, nose congestion, nose ryan n, photophobia, tearing, throat pain, throat swelling, voice changes, others Respiratory: denies: cough, hemoptysis, orthopnea, SOB at rest, shortness of breath, SOB with excertion, stridor, wheezing, others Cardiovascular: reports: chest pain; denies: dizzy spells, diaphoresis, Dyspnea on exertion, edema, irregular heart beat, left arm pain, lightheadedness, palpitations, PND, syncope, others Gastrointestinal: denies: abdomen distended, abdominal pain, blood streaked bowels, constipated, diarrhea, dysphagia, difficulty swallowing, hematemesis, me tomas, nausea, poor appetite, poor fluid intake, rectal bleeding, rectal pain, vomiting, others Genitourinary: denies: abnormal vagina bleeding, burning, dyspareunia, dysuria, flank pain, frequency, hematuria, incontinence, pain, , vagina discharge, urgency, others Neurological: denies: dizziness, fainting, headache, left sided numbness, left sided weakness, numbness, paresthesia, pre-existing deficit, right sided numbness, right sided weakness, seizure, speech problems, tingling, tremors, weakness, others Musculoskeletal: denies: back pain, gout, joint pain, joint swelling, muscle pain, muscle stiffness, neck pain, others Integumetry: denies: bruises, change in color, change in hair/nails, dryness, laceration, lesions, lumps, rash, wounds, others Allergic/Immunocompromised: denies: Difficulty Healing, Frequent Infections, Hives, Itching, others Hematologic/Lymphatic: denies: anemia, blood clots, easy bleeding, easy bruising, swollen glands, others Endocrine: denies: excessive hunger, excessive sweating, excessive thirst, excessive urination, flushing, intolerance to cold, intolerance to heat, unexplained weight gain, unexplained weight loss, others Psychiatric: denies: anxiety, bipolar disorder, depression, hopeless, panic disorder, schizophrenia, sleepless, suicidal, others All Other Systems: Reviewed and Negative Physical Exam General Appearance: Moderate Distress ([id number] distress due to chest pain concerns.), Normal HEENT: Normal ENT Inspection, Pharynx Normal, TMs Normal Neck: Full Range of Motion, Non-Tender, Normal, Normal Inspection Respiratory: Chest Non-Tender, Lungs Clear, No Accessory Muscle Use, No Respiratory Distress, Normal Breath Sounds, Other ( unremarkable auscultation of bilateral lung gutierrez) Cardiovascular: Other ( unremarkable cardiac evaluation) Breast Exam: Deferred Gastrointestinal: No Organomegaly, Non Tender, No Pulsatile Mass, Normal Bowel Sounds, Soft Genitalia: Deferred Pelvic: Deferred Rectal: Deferred Extremities: No calf tenderness, Normal capillary refill, Normal inspection, Normal range of motion, Non-tender, No pedal edema Neurologic: Alert, digital content producer II-XII nml as Tested, No Motor Deficits, Normal Affect, Normal Mood, No Sensory Deficits Cerebellar Function: Normal Reflexes: Normal Skin: Dry, Normal Color, Warm Lymphatic: No Adenopathy Was a procedure done? Was a procedure done?: No CP Differential Dx Differential Diagnosis: A-fib, Anxiety / Panic Attack, Atrial Dysrhythmia, AV Block 1st Degree, ID Differential Diagnosis: HTN Essential, HTN Accelerated X-Ray, Labs, Meds, VS Vital Signs Date Time Temp Pulse Resp B/P (MAP) Pulse Ox O2 Delivery O2 Flow Rate FiO2 07/27/24 21:17 77 151/94 (113) 07/27/24 21:07 98.8 72 19 164/92 (116) 97 98.8 07/27/24 21:07 72 19 97 Room Air 07/27/24 21:07 164/92 07/27/24 17:39 98.5 86 18 148/84 (105) 98 98.5 07/27/24 17:31 86 Lab Test 07/27/24 21:20 07/27/24 18:19 07/27/24 17:36 Range/Units Urine Color Light-yellow Yellow Urine Clarity Clear Clear Urine pH 5.5 5.0-9.0 Urine Specific Rudolph 1.024 1.001-1.035 Urine Protein Negative Negative Urine Ketones Negative Negative Urine Blood Negative Negative /uL Urine Nitrite Negative Negative Urine Bilirubin Negative Negative Urine Urobilinogen Normal Negative mg/dL Urine Leukocyte Esterase Negative Negative /uL Urine RBC 1 0 - 4 /hpf Urine Microscopic WBC 5 0-5 /HPF Urine Squamous Epithelial Cells Few <5 /hpf Urine Bacteria None seen None Seen /hpf Urine Hyaline Casts Few 0 - 2 /lpf Urine Mucus Few None Seen Urine Glucose Normal Normal mg/dL Urine Test Negative Negative Troponin I High Sensitivity < 3 L < 3 L </=34 ng/L White Blood Count 9.5 4.4-10.8 10^3/uL Red Blood Count 4.44 4.0-5.20 10^6/uL Hemoglobin 13.8 12.2-16.2 g/dL Hematocrit 41.7 36.0-46.0 % Mean Corpuscular Volume 93.8 80.0-100.0 fL Mean Corpuscular Hemoglobin 31.1 28.0-32.0 pg Mean Corpuscular Hemoglobin Concent 33.2 32.0-36.0 g/dL Red Cell Distribution Width 14.3 11.8-14.3 % Platelet Count 250 140-450 10^3/uL Mean Platelet Volume 8.0 6.9-10.8 fL Neutrophils (%) (Auto) 73.4 37.0-80.0 % Lymphocytes (%) (Auto) 19.1 10.0-50.0 % Monocytes (%) (Auto) 5.4 0.0-12.0 % Eosinophils (%) (Auto) 1.4 0.0-7.0 % Basophils (%) (Auto) 0.7 0.0-2.0 % Neutrophils # (Auto) 7.0 1.6-8.6 10 ^3/uL Lymphocytes # (Auto) 1.8 0.4-5.4 10 ^3/uL Monocytes # (Auto) 0.5 0-1.3 10 ^3/uL Eosinophils # (Auto) 0.1 0-0.8 10 ^3/uL Basophils # (Auto) 0.1 0-0.2 10 ^3/uL Nucleated Red Blood Cells 0.0 % Sodium Level 139 136-145 mmol/L Potassium Level 4.0 3.5-5.1 mmol/L Chloride Level 106 98-107 mmol/L Carbon Dioxide Level 27 20-31 mmol/L Anion Gap 6 5-15 Blood Urea Nitrogen 15 9-23 mg/dL Creatinine 0.74 0.550-1.02 mg/dL Glomerular Filtration Rate Calc 104 >90 mL/min BUN/Creatinine Ratio 20.3 H 10.0-20.0 Serum Glucose 119 H 74-106 mg/dL Calcium Level 9.5 8.7-10.4 mg/dL Total Bilirubin 0.4 0.2-1.0 mg/dL Aspartate Amino Transferase (AST) 23 13-40 U/L Alanine Aminotransferase (ALT) 26 7-40 U/L Alkaline Phosphatase 98 46-116 U/L Total Protein 7.2 5.7-8.2 g/dL Albumin 4.3 3.2-4.8 g/dL Lipase 44 12-53 U/L Current Medications Medications (Trade) Dose Ordered Sig/Jodi Route Start Time Stop Time Status Last Admin Nitroglycerin (Ntrostat Sublingual) 0.4 mg ONCE ONCE SL 07/27/24 17:45 07/27/24 17:46 DC 07/27/24 21:07 X-Ray, Labs, Meds, VS Comment All studies performed the ED were evaluated by the personally. EKG revealed a sinus rhythm with a rate of 86. Probable left atrial enlargement. Left axis deviation and level additionally precordial leads. SC interval 136 and QT interval of 374. Serum laboratories and urinalysis was unremarkable for any acute systemic concerns including unremarkable cardiac markers. Chest x-ray was unremarkable for any acute pulmonary concerns or consolidation. Patient appears to have chest pain that may be related to an angina concern due to her body habitus. Advised patient to follow up with her primary care provider for continued conversations as needed. Time of 1ST Reevaluation: 22:48 Reevaluation 1ST: Improved Consultation: PCP, Cardiology Patient Education/Counseling: Diagnosis, Treatment Family Education/Counseling: Diagnosis, Treatment, No Family Present Departure 1 Departure Time of Disposition: 22:48 Impression: Primary Impression: Chest pain Disposition: HOME / SELF CARE / HOMELESS Condition: Stable Additional Instructions: Advised patient utilize medication as needed and additionally, patient should follow up with primary care provider for cardiac referral and evaluation to discuss today's visit. e-Prescriptions Nitroglycerin (Nitrostat) 0.4 Mg Sub 0.4 MG SL Q6HP PRN, #20 INJ Prov: ARACELIS OMER PAC 07/27/24 Discharged With: Self, Friend Critical Care Note Critical Care Time?: No Stability Stability form required: No Heart Score Heart Score: Heart Score Response (Comments) Value History N/A 0 EKG N/A 0 Age N/A 0 Risk Factors N/A 0 Troponin N/A 0 Total 0 I personally scribed for ARACELIS OMER PAC ([email or web address]) on 07/27/24 at 18:12. Electronically submitted by Maria G Cisneros ([email or web address]). ARACELIS OMER PAC Jul 27, 2024 18:12
[2024-07-27 18:22] LABS: Alanine Aminotransferase 26 U/L (7-40); Albumin 4.3 g/dL (3.2-4.8); Alkaline Phosphatase 98 U/L (46-116); Anion Gap 6 (5-15); Aspartate Aminotransferase 23 U/L (13-40); BUN/Creatinine Ratio 20.3 (10.0-20.0); Blood Urea Nitrogen 15 mg/dL (9-23); Calcium 9.5 mg/dL (8.7-10.4); Carbon Dioxide 27 mmol/L (20-31); Chloride 106 mmol/L (98-107); Lipase 44 U/L (12-53); Sodium 139 mmol/L (136-145); Total Protein 7.2 g/dL (5.7-8.2)
[2024-07-27 18:23] LABS: Bilirubin, Total 0.4 mg/dL (0.2-1.0); Glucose 119 mg/dL (74-106)
--- NOTE | 2024-07-27 20:45 | DVH ---
CHEST RADIOGRAPH Indication: Chest pain Technique: Single frontal view of the chest was obtained COMPARISON: XY CHEST PORTABLE on DOS: 03/19/24 FINDINGS: Lines and Tubes: None Lungs: Clear Pleura: No effusion. No pneumothorax. Cardiomediastinal contours: Unremarkable Bones: Unremarkable IMPRESSION: No abnormality demonstrated.
[2024-07-27] MEDS: NITROGLYCERIN 0.4 MG SL TAB SL ONE (21:07)
[2024-07-27 21:40] LABS: Urine Bacteria None Seen /hpf (None Seen)
[2024-07-27 22:07] LABS: Urine Blood Negative /uL (Negative); Urine Clarity Clear (Clear); Urine Color Light-Yellow (Yellow); Urine Hyaline Cast FEW /lpf (0 - 2); Urine Mucus FEW (None Seen); Urine Protein, UAD Negative (Negative); Urine Specific Gravity 1.024 (1.001-1.035); Urine Squamous Epithelial Cell FEW /hpf (<5); Urine Urobilinogen Normal (Negative); Urine WBC 5 /HPF (0-5); Urine pH 5.5 (5.0-9.0)
[2024-07-27] MEDS ORDERED: NITR0.4S29 SL (22:50)
[2024-07-27 23:10] VITALS: BP 157/94; PULSE 72; RESP 18; TEMP 98.8; O2SAT 97
--- NOTE | 2024-07-28 08:23 | ECG ---
[facility] Test Date: 2024-07-27 Test Time: 17:29:12 Pat Name: BRENT BLACK Department: ED Room: Gender: F Dry Talc Racker: SILVIA : 1980 Requested By: FRANCIS ALEXANDRA Order Number: [id number] Reading MD: Dick Kee Measurements Intervals [place] Rate: 86 P: 50 NC: 156 QRS: -43 QRSD: 98 T: 74 QT: 374 QTc: 448 Interpretive Statements Sinus rhythm Probable left atrial enlargement Left axis deviation Low voltage, precordial leads Consider anterior infarct Electronically Signed On 07-28-2024 13:45:57 PDT by Dick Kee Please click the below link to view image of tracing.
== END 2024-07-27 23:10 | disposition home or self-care (01) ==
LOC: ER 17:19
DX: R07.89 Other chest pain (principal); I10 Essential (primary) hypertension; F41.9 Anxiety disorder, unspecified; Z98.51 Tubal ligation status; Z79.899 Other long term (current) drug therapy
CPT/HCPCS: 36415; 71045; 80053; 81001; 81025; 83690; 84484; 85025; 93005

== ENCOUNTER 2024-08-18 10:31 | Emergency (ER) | payer OTHER ==
[~2024-08-18] VITALS: Ht 157.5 cm; Wt 137.1 kg
[~2024-08-18 10:31] MED LIST changes: +NITR0.4S29 SL
--- NOTE | 2024-08-18 11:17 | ECG ---
[facility] Test Date: 2024-08-18 Test Time: 11:09:24 Pat Name: BRENT BLACK Department: ER Room: Gender: F Hospital Administrative Assistant: MAKENZIE : 1980 Requested By: DENVER HIGGINS Order Number: [id number] Reading MD: Dick Kee Measurements Intervals [place] Rate: 80 P: 33 [place]: 148 QRS: -39 QRSD: 96 T: 64 QT: 382 QTc: 441 Interpretive Statements Sinus rhythm Left axis deviation Low voltage, precordial leads Consider anterior infarct Electronically Signed On 08-23-2024 12:07:58 PDT by Dick Kee Please click the below link to view image of tracing.
--- NOTE | 2024-08-18 11:21 | ED.PDOC ---
Chief Complaint: High Blood Pressure Time Seen by MD: 11:30 Primary Care Provider: du Reviewed Notes: Nurses Notes, Medications, Allergies Allergies: Coded Allergies: NO KNOWN ALLERGIES (Unverified , 02/21/19) Home Meds Active Scripts Nitroglycerin (Nitrostat) 0.4 Mg Sub, 0.4 MG SL Q6HP PRN, #20 INJ Prov:ARACELIS OMER PAC 07/27/24 Losartan Potassium (Losartan Potassium) 50 Mg Tab, 1 TAB PO DAILY, #30 TAB 5 Refills Prov:FRANCIS ESPARZA MD 03/19/24 Ibuprofen (Ibuprofen) 800 Mg Tab, 1 TAB PO TID PRN, #30 TAB 0 Refills Prov:RADHA DILLARD 02/23/24 Pantoprazole Sodium Sesquihydr (Protonix) 40 Mg Tab, 40 MG PO DAILY for 10 Days, #10 TAB Prov:DENVER HIGGINS MD 10/24/23 Meloxicam (Meloxicam) 7.5 Mg Tab, 1 TAB PO DAILYP PRN for 30 Days, #30 TAB 0 Refills Prov:AMI ABBOTT NP 07/13/23 Azithromycin (Azithromycin) 500 Mg Tab, 1 TAB PO DAILY, #5 TAB Prov:ED MANSFIELD 04/10/23 Promethazine-Dm (Promethazine Dm 6.25-15 mg/5Ml) 1 Mery Mery, 5 ML PO TID, #160 ML Prov:ED MANSFIELD 04/10/23 Docusate Sodium (Colace) 100 Mg Cap, 1 CAP PO BID for 10 Days, #20 CAP As needed for constipaton Prov:MINERVA SAMUELS NP 12/27/22 Ondansetron Odt 4MG Tab (ZOFRAN PO) 4 Mg Tb, 1 TAB PO Q8HR, #20 TAB ODT TAB-DISSOLVE IN MOUTH, THEN SWALLOW as needed for nausea vomit Prov:MINERVA SAMUELS NP 12/27/22 Hydrocodone-Acetaminophen (Hydrocodone Bitartrate/AC 5-325 mg) 1 Tab Tab, 1 TAB PO Q6HR, #12 TAB as needed for pain Prov:MINERVA SAMUELS NP 12/27/22 Information Source: Patient Mode of Arrival: Ambulatory Severity: Moderate Duration: Since onset Prehospital treatment: None Onset: At Rest Cardiac Risk Factors: HTN PE Risk Factors: None History of: None Modifying Factors: Nothing Associated Signs and Symptoms: None Past Medical History PAST MEDICAL HISTORY: Anxiety, HTN Surgical History: , Tubal Ligation CONSTRUCTION EQUIPMENT OPERATOR History: Denies all CONSTRUCTION EQUIPMENT OPERATOR Hx Family History Family History: Reviewed,noncontributory to illness, Family hx of DM Social History Smoker: Non-Smoker Alcohol: Denies ETOH Use Drugs: Denies Drug Use Lives In: Home Constitutional: denies: chills, diaphoresis, fatigue, fever, malaise, sweats, weakness, others EENTM: denies: blurred vision, double vision, ear bleeding, ear discharge, ear drainage, ear pain, ear ringing, eye pain, eye redness, hearing loss, mouth pain, mouth swelling, nasal discharge, nose bleeding, nose congestion, nose pain, photophobia, tearing, throat pain, throat swelling, voice changes, others Respiratory: denies: cough, hemoptysis, orthopnea, SOB at rest, shortness of breath, SOB with excertion, stridor, wheezing, others Gastrointestinal: denies: abdomen distended, abdominal pain, blood streaked bowels, constipated, diarrhea, dysphagia, difficulty swallowing, hematemesis, melena, nausea, poor appetite, poor fluid intake, rectal bleeding, rectal pain, vomiting, others Genitourinary: denies: abnormal vagina bleeding, burning, dyspareunia, dysuria, flank pain, frequency, hematuria, incontinence, pain, , vagina discharge, urgency, others Neurological: denies: dizziness, fainting, headache, left sided numbness, left sided weakness, numbness, paresthesia, pre-existing deficit, right sided numbness, right sided weakness, seizure, speech problems, tingling, tremors, weakness, others Musculoskeletal: denies: back pain, gout, joint pain, joint swelling, muscle pain, muscle stiffness, neck pain, others Integumetry: denies: bruises, change in color, change in hair/nails, dryness, laceration, lesions, lumps, rash, wounds, others Allergic/Immunocompromised: denies: Difficulty Healing, Frequent Infections, Hives, Itching, others Hematologic/Lymphatic: denies: anemia, blood clots, easy bleeding, easy bruising, swollen glands, others Endocrine: denies: excessive hunger, excessive sweating, excessive thirst, excessive urination, flushing, intolerance to cold, intolerance to heat, unexplained weight gain, unexplained weight loss, others Psychiatric: denies: anxiety, bipolar disorder, depression, hopeless, panic disorder, schizophrenia, sleepless, suicidal, others All Other Systems: Reviewed and Negative Was a procedure done? Was a procedure done?: No CP Differential Dx Differential Diagnosis: Anxiety / Panic Attack Differential Diagnosis: HTN Essential, HTN Accelerated X-Ray, Labs, Meds, VS Vital Signs Date Time Temp Pulse Resp B/P (MAP) Pulse Ox O2 Delivery O2 Flow Rate FiO2 08/18/24 11:45 84 16 96 Room Air 08/18/24 11:45 97.9 84 16 126/80 (95) 96 97.9 08/18/24 11:13 98.2 82 17 140/83 (102) 98 98.2 08/18/24 11:09 80 Lab Test 08/18/24 11:11 Range/Units POC Glucose 104 70-106 mg/dl Time of 1ST Reevaluation: 12:00 Reevaluation 1ST: Unchanged Patient Education/Counseling: Diagnosis, Treatment Family Education/Counseling: No Family Present Critical Care Note Critical Care Time?: No Stability Stability form required: No Heart Score Heart Score: Heart Score Response (Comments) Value History N/A 0 EKG N/A 0 Age N/A 0 Risk Factors N/A 0 Troponin N/A 0 Total 0 I personally scribed for ARACELIS OMER PAC ([email or web address]) on 08/18/24 at 11:21. Electronically submitted by Maria G Cisneros ([email or web address]). I personally scribed for KANARACELIS B PAC ([email or web address]) on 08/18/24 at 12:05. Electronically submitted by Maria G Cisneros ([email or web address]). ARACELIS OMER B PAC August 18, 2024 11:21
[2024-08-18 12:11] VITALS: PULSE 84; RESP 16; O2SAT 96
--- NOTE | 2024-08-18 12:34 | ED.PDOC ---
HPI Comments 44 y/o F, with PMHx of anxiety and HTN presents to the ED for CC of hypertension. Patient states, that she checked her blood pressure yesterday (08/18/24); and had a hypertensive reading of 173/150mmHg. Patient reports, associated symptoms of tremors and dizziness. Patient states, she called her PCP and was told to take double the dose of her hypertension medication however, symptoms did not improve. Patient denies nausea, vomiting, headache, or fatigue. No other symptoms or modifying factors present at this time. Chief Complaint: High Blood Pressure Time Seen by MD: 11:30 Primary Care Provider: [facility] Reviewed Notes: Nurses Notes, Medications, Allergies Allergies: Coded Allergies: NO KNOWN ALLERGIES (Unverified , 02/21/19) Home Meds Active Scripts Nitroglycerin (Nitrostat) 0.4 Mg Sub, 0.4 MG SL Q6HP PRN, #20 INJ Prov:ARACELIS OMER PAC 07/27/24 Losartan Potassium (Losartan Potassium) 50 Mg Tab, 1 TAB PO DAILY, #30 TAB 5 Refills Prov:FRANCIS ESPARZA MD 03/19/24 Ibuprofen (Ibuprofen) 800 Mg Tab, 1 TAB PO TID PRN, #30 TAB 0 Refills Prov:RADHA DILLARD 02/23/24 Pantoprazole Sodium Sesquihydr (Protonix) 40 Mg Tab, 40 MG PO DAILY for 10 Days, #10 TAB Prov:DENVER HIGGINS MD 10/24/23 Meloxicam (Meloxicam) 7.5 Mg Tab, 1 TAB PO DAILYP PRN for 30 Days, #30 TAB 0 Refills Prov:AMI ABBOTT UNDERGROUND ROOF BOLTER 07/13/23 Azithromycin (Azithromycin) 500 Mg Tab, 1 TAB PO DAILY, #5 TAB Prov:ED MANSFIELD 04/10/23 Promethazine-Dm (Promethazine Dm 6.25-15 mg/5Ml) 1 Mery Mery, 5 ML PO TID, #160 ML Prov:ED MANSFIELD 04/10/23 Docusate Sodium (Colace) 100 Mg Cap, 1 CAP PO BID for 10 Days, #20 CAP As needed for constipaton Prov:MINERVA SAMUELS UNDERGROUND ROOF BOLTER 12/27/22 Ondansetron Odt 4MG Tab (ZOFRAN PO) 4 Mg Tb, 1 TAB PO Q8HR, #20 TAB ODT TAB-DISSOLVE IN MOUTH, THEN SWALLOW as needed for nausea vomit Prov:MINERVA SAMUELS Karrie COLMENARES 12/27/22 Hydrocodone-Acetaminophen (Hydrocodone Bitartrate/AC 5-325 mg) 1 Tab Tab, 1 TAB PO Q6HR, #12 TAB as needed for pain Prov:MINERVA SAMUELS Karrie COLMENARES 12/27/22 Information Source: Patient Mode of Arrival: Ambulatory Severity: Moderate Timing: Hours Duration: Since onset Prehospital treatment: None Onset: At Rest Cardiac Risk Factors: HTN PE Risk Factors: None History of: None Modifying Factors: Nothing Associated Signs and Symptoms: None Past Medical History PAST MEDICAL HISTORY: Anxiety, HTN Surgical History: , Tubal Ligation PATIENT FLOW COORDINATOR History: Denies all PATIENT FLOW COORDINATOR Hx Family History Family History: Reviewed,noncontributory to illness, Family hx of DM Social History Smoker: Non-Smoker Alcohol: Denies ETOH Use Drugs: Denies Drug Use Lives In: Home Constitutional: denies: chills, diaphoresis, fatigue, fever, malaise, sweats, weakness, others EENTM: denies: blurred vision, double vision, ear bleeding, ear discharge, ear drainage, ear pain, ear ringing, eye pain, eye redness, hearing loss, mouth pain, mouth swelling, nasal discharge, nose bleeding, nose congestion, nose pain, photophobia, tearing, throat pain, throat swelling, voice changes, others Respiratory: denies: cough, hemoptysis, orthopnea, SOB at rest, shortness of breath, SOB with excertion, stridor, wheezing, others Cardiovascular: denies: chest pain, dizzy spells, diaphoresis, Dyspnea on exertion, edema, irregular heart beat, left arm pain, lightheadedness, palpitations, PND, syncope, others Gastrointestinal: denies: abdomen distended, abdominal pain, blood streaked bowels, constipated, diarrhea, dysphagia, difficulty swallowing, hematemesis, melena, nausea, poor appetite, poor fluid intake, rectal bleeding, rectal pain, vomiting, others Genitourinary: denies: abnormal vagina bleeding, burning, dyspareunia, dysuria, flank pain, frequency, hematuria, incontinence, pain, , vagina discharge, urgency, others Neurological: reports: tremors; denies: dizziness, fainting, headache, left sided numbness, left sided weakness, numbness, paresthesia, pre-existing deficit, right sided numbness, right sided weakness, seizure, speech problems, tingling, weakness, others Musculoskeletal: denies: back pain, gout, joint pain, joint swelling, muscle pain, muscle stiffness, neck pain, others Integumetry: denies: bruises, change in color, change in hair/nails, dryness, laceration, lesions, lumps, rash, wounds, others Allergic/Immunocompromised: denies: Difficulty Healing, Frequent Infections, Hi ves, Itching, others Hematologic/Lymphatic: denies: anemia, blood clots, easy bleeding, easy bruising, swollen glands, others Endocrine: denies: excessive hunger, excessive sweating, excessive thirst, excessive urination, flushing, intolerance to cold, intolerance to heat, unexplained weight gain, unexplained weight loss, others Psychiatric: denies: anxiety, bipolar disorder, depression, hopeless, panic disorder, schizophrenia, sleepless, suicidal, others All Other Systems: Reviewed and Negative Physical Exam General Appearance: Moderate Distress HEENT: Normal ENT Inspection, Pharynx Normal, TMs Normal Neck: Full Range of Motion, Non-Tender, Normal, Normal Inspection Respiratory: Chest Non-Tender, Lungs Clear, No Accessory Muscle Use, No Respiratory Distress, Normal Breath Sounds Cardiovascular: No Edema, No JVD, No Murmur, No Gallop, Normal Peripheral Pulses, Regular Rate/Rhythm Breast Exam: Deferred Gastrointestinal: No Organomegaly, Non Tender, No Pulsatile Mass, Normal Bowel Sounds, Soft Genitalia: Deferred Pelvic: Deferred Rectal: Deferred Extremities: No calf tenderness, Normal capillary refill, Normal inspection, Normal range of motion, Non-tender, No pedal edema Musculoskeletal : Apperance: Normal Neurologic: Alert, firefighter II-XII nml as Tested, No Motor Deficits, Normal Affect, Normal Mood, No Sensory Deficits Cerebellar Function: Normal Reflexes: Normal Skin: Dry, Normal Color, Warm Peripheral Pulses: 3+ Radial (R), 3+ Radial (L) Lymphatic: No Adenopathy Was a procedure done? Was a procedure done?: No CP Differential Dx Differential Diagnosis: A-fib, A-Flutter, Angina, Anxiety / Panic Attack, Atrial Dysrhythmia, Electrolyte Disorder Differential Diagnosis: HTN Essential, HTN Accelerated Differential Diagnosis: Chest Wall Pain, Costochondritis X-Ray, Labs, Meds, VS Vital Signs Date Time Temp Pulse Resp B/P (MAP) Pulse Ox O2 Delivery O2 Flow Rate FiO2 08/18/24 12:48 98.7 79 16 120/76 (91) 95 98.7 08/18/24 12:11 84 16 96 Room Air* 0 21 08/18/24 11:45 84 16 96 Room Air 08/18/24 11:45 97.9 84 16 126/80 (95) 96 97.9 08/18/24 11:13 98.2 82 17 140/83 (102) 98 98.2 08/18/24 11:09 80 Lab Test 08/18/24 11:11 Range/Units POC Glucose 104 70-106 mg/dl Patient alert. Complaining of having high blood pressure. On examination blood pressure within normal limits. Vitals stable. Answering questions. Denies chest pain. No leg swelling. No shortness a breath. Continue her medication. Reviewed her history. Explained to the patient. Was told to follow up with her primary care physician. Was told to come back if there is any problem. Time of 1ST Reevaluation: 12:00 Reevaluation 1ST: Improved Patient Education/Counseling: Diagnosis, Treatment, Prognosis, Need For Follow Up Family Education/Counseling: Diagnosis, Treatment Departure 1 Departure Time of Disposition: 17:49 Impression: Primary Impression: Hypertension Qualified Codes: I10 - Essential (primary) hypertension Disposition: 01 HOME / SELF CARE / HOMELESS Condition: Good Discharged With: Self Critical Care Note Critical Care Time?: No Stability Stability form required: No Heart Score Heart Score: Heart Score Response (Comments) Value History N/A 0 EKG N/A 0 Age N/A 0 Risk Factors N/A 0 Troponin N/A 0 Total 0 I personally scribed for DENVER HIGGINS MD ([email or web address]) on 08/18/24 at 12:34. Electronically submitted by Maria G Cisneros ([email or web address]). DENVER HIGGINS MD August 18, 2024 12:34
[2024-08-18 12:48] VITALS: BP 120/76; PULSE 79; RESP 16; TEMP 98.7; O2SAT 95
== END 2024-08-18 13:09 | disposition home or self-care (01) ==
LOC: ER 10:31
DX: I10 Essential (primary) hypertension (principal); F41.9 Anxiety disorder, unspecified; Z79.899 Other long term (current) drug therapy; Z98.51 Tubal ligation status; Z98.890 Other specified postprocedural states
CPT/HCPCS: 82947; 82962; 93005

== ENCOUNTER 2024-09-05 14:12 | Inpatient (IN) | payer OTHER ==
[~2024-09-05] VITALS: Ht 157.5 cm; Wt 131.0 kg
--- NOTE | 2024-09-05 14:28 | ED.PDOC ---
History of Present Illness HPI Comments 44-year-old female came to the ER complaining of chest pain which started three days ago. She has been having this chest pain on and off since the beginning of the year. Chest pain 7/10 radiation to the left shoulder extending to the fingers. Chest pain upon rest. She does have a history of hypertension angina. Blood pressure on arrival 165/90 sound with a heart rate of 90 saturation 97% on room air. She is slightly obese. Denies any other symptoms. Chief Complaint: Chest Pain Time Seen by MD: 14:17 Primary Care Provider: [facility] Reviewed Notes: Nurses Notes, Medications, Allergies Allergies: Coded Allergies: NO KNOWN ALLERGIES (Unverified , 02/21/19) Home Meds Active Scripts Nitroglycerin (Nitrostat) 0.4 Mg Sub, 0.4 MG SL Q6HP PRN, #20 INJ Prov:ARACELIS OMER PAC 07/27/24 Losartan Potassium (Losartan Potassium) 50 Mg Tab, 1 TAB PO DAILY, #30 TAB 5 Refills Prov:FRANCIS ESPARZA MD 03/19/24 Ibuprofen (Ibuprofen) 800 Mg Tab, 1 TAB PO TID PRN, #30 TAB 0 Refills Prov:RADHA DILLARD 02/23/24 Pantoprazole Sodium Sesquihydr (Protonix) 40 Mg Tab, 40 MG PO DAILY for 10 Days, #10 TAB Prov:DENVER HIGGINS MD 10/24/23 Meloxicam (Meloxicam) 7.5 Mg Tab, 1 TAB PO DAILYP PRN for 30 Days, #30 TAB 0 Refills Prov:AMI ABBOTT MACHINE SHORTHAND TEACHER 07/13/23 Azithromycin (Azithromycin) 500 Mg Tab, 1 TAB PO DAILY, #5 TAB Prov:ED MANSFIELD 04/10/23 Promethazine-Dm (Promethazine Dm 6.25-15 mg/5Ml) 1 Mery Mery, 5 ML PO TID, #160 ML Prov:ED MANSFIELD 04/10/23 Docusate Sodium (Colace) 100 Mg Cap, 1 CAP PO BID for 10 Days, #20 CAP As needed for constipaton Prov:MINERVA SAMUELS MACHINE SHORTHAND TEACHER 12/27/22 Ondansetron Odt 4MG Tab (ZOFRAN PO) 4 Mg Tb, 1 TAB PO Q8HR, #20 TAB ODT TAB-DISSOLVE IN MOUTH, THEN SWALLOW as needed for nausea vomit Prov:MINERVA SAMUELS Karrie MACHINE SHORTHAND TEACHER 12/27/22 Hydrocodone-Acetaminophen (Hydrocodone Bitartrate/AC 5-325 mg) 1 Tab Tab, 1 TAB PO Q6HR, #12 TAB as needed for pain Prov:MINERVA SAMUELS MACHINE SHORTHAND TEACHER 12/27/22 Information Source: Patient Mode of Arrival: Ambulatory Severity: Moderate Timing: Days Duration: Since onset Past Medical History PAST MEDICAL HISTORY: Angina, Anxiety, HTN Surgical History: , Tubal Ligation HYDROGRAPHY TEACHER History: Denies all HYDROGRAPHY TEACHER Hx Family History Family History: Reviewed,noncontributory to illness, Family hx of DM Social History Smoker: Non-Smoker Alcohol: Denies ETOH Use Drugs: Denies Drug Use Lives In: Home Constitutional: denies: chills, diaphoresis, fatigue, fever, malaise, sweats, weakness, others EENTM: denies: blurred vision, double vision, ear bleeding, ear discharge, ear drainage, ear pain, ear ringing, eye pain, eye redness, hearing loss, mouth pain, mouth swelling, nasal discharge, nose bleeding, nose congestion, nose pain, photophobia, tearing, throat pain, throat swelling, voice changes, others Respiratory: denies: cough, hemoptysis, orthopnea, SOB at rest, shortness of breath, SOB with excertion, stridor, wheezing, others Cardiovascular: reports: chest pain; denies: dizzy spells, diaphoresis, Dyspnea on exertion, edema, irregular heart beat, left arm pain, lightheadedness, palpitations, PND, syncope, others Gastrointestinal: denies: abdomen distended, abdominal pain, blood streaked bowels, constipated, diarrhea, dysphagia, difficulty swallowing, hematemesis, melena, nausea, poor appetite, poor fluid intake, rectal bleeding, rectal pain, vomiting, others Genitourinary: denies: abnormal vagina bleeding, burning, dyspareunia, dysuria, flank pain, frequency, hematuria, incontinence, pain, , vagina discharge, urgency, others Neurological: denies: dizziness, fainting, headache, left sided numbness, left sided weakness, numbness, paresthesia, pre-existing deficit, right sided numbness, right sided weakness, seizure, speech problems, tingling, tremors, weakness, others Musculoskeletal: denies: back pain, gout, joint pain, joint swelling, muscle pain, muscle stiffness, neck pain, others Integumetry: denies: bruises, change in color, change in hair/nails, dryness, laceration, lesions, lumps, rash, wounds, others Allergic/Immunocompromised: denies: Difficulty Healing, Frequent Infections, Hives, Itching, others Hematologic/Lymphatic: denies: anemia, blood clots, easy bleeding, easy bruising, swollen glands, others Endocrine: denies: excessive hunger, excessive sweating, excessive thirst, excessive urination, flushing, intolerance to cold, intolerance to heat, unexplained weight gain, unexplained weight loss, others Psychiatric: denies: anxiety, bipolar disorder, depression, hopeless, panic disorder, schizophrenia, sleepless, suicidal, others Physical Exam General Appearance: Moderate Distress HEENT: Normal ENT Inspection, Pharynx Normal, TMs Normal Neck: Full Range of Motion, Non-Tender, Normal, Normal Inspection Respiratory: Chest Non-Tender, Lungs Clear, No Accessory Muscle Use, No Respiratory Distress, Normal Breath Sounds Cardiovascular: No Edema, No JVD, No Murmur, No Gallop, Normal Peripheral Pulses, Regular Rate/Rhythm Breast Exam: Deferred Gastrointestinal: No Organomegaly, Non Tender, No Pulsatile Mass, Normal Bowel Sounds, Soft Genitalia: Deferred Pelvic: Deferred Rectal: Deferred Extremities: No calf tenderness, Normal capillary refill, Normal inspection, Normal range of motion, Non-tender, No pedal edema Musculoskeletal : Apperance: Normal Neurologic: Alert, clinical data abstractor II-XII nml as Tested, No Motor Deficits, Normal Affect, Normal Mood, No Sensory Deficits Cerebellar Function: NOT DONE Reflexes: Normal Skin: Dry, Normal Color, Warm Peripheral Pulses: 3+ Radial (R), 3+ Radial (L) Lymphatic: No Adenopathy Was a procedure done? Was a procedure done?: No EKG EKG : Pulse Rate (adult): 90 Cardiac Rhythm: NSR Differential Dx Considerations may include: Angina Electrolyte imbalance X-Ray, Labs, Meds, VS Vital Signs Date Time Temp Pulse Resp B/P (MAP) Pulse Ox O2 Delivery O2 Flow Rate FiO2 09/05/24 14:28 90 09/05/24 14:24 98.2 90 16 165/97 (119) 97 98.2 09/05/24 14:18 85 Lab Test 09/05/24 15:05 09/05/24 14:23 Range/Units Troponin I High Sensitivity 3 L 3 L </=34 ng/L White Blood Count 9.5 4.4-10.8 10^3/uL Red Blood Count 4.45 4.0-5.20 10^6/uL Hemoglobin 13.6 12.2-16.2 g/dL Hematocrit 40.7 36.0-46.0 % Mean Corpuscular Volume 91.4 80.0-100.0 fL Mean Corpuscular Hemoglobin 30.5 28.0-32.0 pg Mean Corpuscular Hemoglobin Concent 33.4 32.0-36.0 g/dL Red Cell Distribution Width 13.7 11.8-14.3 % Platelet Count 257 140-450 10^3/uL Mean Platelet Volume 8.4 6.9-10.8 fL Neutrophils (%) (Auto) 70.1 37.0-80.0 % Lymphocytes (%) (Auto) 19.2 10.0-50.0 % Monocytes (%) (Auto) 6.1 0.0-12.0 % Eosinophils (%) (Auto) 4.0 0.0-7.0 % Basophils (%) (Auto) 0.6 0.0-2.0 % Neutrophils # (Auto) 6.6 1.6-8.6 10 ^3/uL Lymphocytes # (Auto) 1.8 0.4-5.4 10 ^3/uL Monocytes # (Auto) 0.6 0-1.3 10 ^3/uL Eosinophils # (Auto) 0.4 0-0.8 10 ^3/uL Basophils # (Auto) 0.1 0-0.2 10 ^3/uL Nucleated Red Blood Cells 0.2 % Prothrombin Time 10.2 9.3-11.8 sec Prothrombin Time INR 0.96 0.9-1.15 Activated Partial Thromboplast Time 31.5 24.5-34.5 SEC Sodium Level 139 136-145 mmol/L Potassium Level 4.1 3.5-5.1 mmol/L Chloride Level 106 98-107 mmol/L Carbon Dioxide Level 27 20-31 mmol/L Anion Gap 6 5-15 Blood Urea Nitrogen 14 9-23 mg/dL Creatinine 0.72 0.550-1.02 mg/dL Glomerular Filtration Rate Calc 107 >90 mL/min BUN/Creatinine Ratio 19.4 10.0-20.0 Serum Glucose 92 74-106 mg/dL Hemoglobin A1c 5.4 <5.7 % A1C Calcium Level 9.6 8.7-10.4 mg/dL Magnesium Level 1.9 1.6-2.6 mg/dL Total Bilirubin 0.4 0.2-1.0 mg/dL Aspartate Amino Transferase (AST) 18 13-40 U/L Alanine Aminotransferase (ALT) 20 7-40 U/L Alkaline Phosphatase 102 46-116 U/L B-Type Natriuretic Peptide 79.81 0-100 pg/mL Total Protein 7.5 5.7-8.2 g/dL Albumin 4.4 3.2-4.8 g/dL Triglycerides Level 104 < 150 mg/dL Cholesterol Level 193 < 200 mg/dL LDL Cholesterol 144 H < 100 mg/dL HDL Cholesterol 42 40-59 mg/dL Thyroid Stimulating Hormone (TSH) 0.71 0.55-4.78 uIU/mL Beta HCG, Quantitative 0.5 L 1.5-4.2 mIU/mL Patient alert. Complaining of chest pain. Blood pressure slightly elevated. Saturation pristine on room air. Was given aspirin. Was given nitro. Has been having these symptoms for many months. Cardiology consultation. Echocardiogram. Explained to the patient that she will be admitted for further workup for chest pain. Continue monitoring. EKG reviewed does not show any acute changes. Time of 1ST Reevaluation: 14:26 Reevaluation 1ST: Unchanged Patient Education/Counseling: Diagnosis, Treatment, Prognosis Family Education/Counseling: No Family Present Departure 1 Departure Time of Disposition: 14:27 Impression: Primary Impression: Chest pain of unknown etiology Additional Impression: Hypertensive urgency Disposition: 09 ADMITTED INPATIENT Admit to: Med Surg Condition: Guarded Critical Care Note Critical Care Time?: Yes (90 min-critical care time only) Critical care comment: Continues to have chest pain Stability Stability form required: No Heart Score Heart Score: Heart Score Response (Comments) Value History Slightly Suspicious 0 EKG Normal 0 Age <45 0 Risk Factors 1 or 2 risk factors 1 Troponin Normal limit 0 Total 1 DENVER HIGGINS MD September 05, 2024 14:28
[2024-09-05 14:50] LABS: Basophils # (auto) 0.1 10 ^3/uL (0-0.2); Basophils % (auto) 0.6 % (0.0-2.0); Eosinophils # (auto) 0.4 10 ^3/uL (0-0.8); Hematocrit 40.7 % (36.0-46.0); Hemoglobin 13.6 g/dL (12.2-16.2); Lymphocytes # (auto) 1.8 10 ^3/uL (0.4-5.4); Lymphocytes % (auto) 19.2 % (10.0-50.0); Mean Corpuscular Hemoglobin 30.5 pg (28.0-32.0); Mean Corpuscular Hgb Conc. 33.4 g/dL (32.0-36.0); Mean Corpuscular Volume 91.4 fL (80.0-100.0); Monocytes # (auto) 0.6 10 ^3/uL (0-1.3); Monocytes % (auto) 6.1 % (0.0-12.0); Neutrophils # (auto) 6.6 10 ^3/uL (1.6-8.6); Neutrophils % (auto) 70.1 % (37.0-80.0); Nucleated Red Blood Cells % 0.2 %; Platelet Count (auto) 257 10^3/uL (140-450); Red Blood Cells 4.45 10^6/uL (4.0-5.20); Red Cell Distribution Width 13.7 % (11.8-14.3); White Blood Cell 9.5 10^3/uL (4.4-10.8)
[2024-09-05 14:51] LABS: Alanine Aminotransferase 20 U/L (7-40); Albumin 4.4 g/dL (3.2-4.8); Alkaline Phosphatase 102 U/L (46-116); Anion Gap 6 (5-15); Aspartate Aminotransferase 18 U/L (13-40); BUN/Creatinine Ratio 19.4 (10.0-20.0); Blood Urea Nitrogen 14 mg/dL (9-23); Calcium 9.6 mg/dL (8.7-10.4); Carbon Dioxide 27 mmol/L (20-31); Chloride 106 mmol/L (98-107); Glucose 92 mg/dL (74-106); Magnesium 1.9 mg/dL (1.6-2.6); Potassium 4.1 mmol/L (3.5-5.1); Sodium 139 mmol/L (136-145); Total Protein 7.5 g/dL (5.7-8.2)
[2024-09-05 14:52] LABS: Bilirubin, Total 0.4 mg/dL (0.2-1.0)
[2024-09-05 14:53] LABS: INR 0.96 (0.9-1.15); Partial Thromboplastin Time 31.5 SEC (24.5-34.5); Prothrombin Time 10.2 sec (9.3-11.8)
--- NOTE | 2024-09-05 14:56 | DVH ---
CHEST RADIOGRAPH Indication: CP Technique: Single frontal view of the chest was obtained Comparison: XY CHEST PORTABLE on DOS: 07/27/24, XY CHEST PORTABLE on DOS: 03/19/24, XY CHEST XRAY 1 VIE W on DOS: 04/10/23 FINDINGS: Lines and Tubes: None Lungs: No focal consolidation. Pleura: No effusion. No pneumothorax. Cardiomediastinal contours: Unremarkable Bones: No acute osseous abnormality. IMPRESSION: 1. No acute cardiopulmonary disease.
--- NOTE | 2024-09-05 15:26 | ECG ---
[facility] Test Date: 2024-09-05 Test Time: 15:25:09 Pat Name: BRENT BLACK Department: ED Room: [address] [place] [address] Gender: F Harp Regulator: BURKE : 1980 Requested By: SEVEN BHATIA Order Number: [id number] Reading MD: Dick Kee Measurements Intervals [place] Rate: 81 P: 51 WA: 161 QRS: 4 QRSD: 100 T: 53 QT: 371 QTc: 431 Interpretive Statements Sinus rhythm Low voltage, precordial leads Electronically Signed On 09-10-2024 21:57:31 PDT by Dick Kee Please click the below link to view image of tracing.
[2024-09-05] MEDS ORDERED: NITROGLYCERIN 0.4 MG SL TAB SL PRN (15:30)
[2024-09-05] MEDS ORDERED: MORPHINE SULFATE INJ 2 MG/ml SYRG IV PRN (15:30)
[2024-09-05] MEDS: LOSARTAN POTASSIUM 50 MG TAB PO ONE (16:00)
--- NOTE | 2024-09-05 16:19 | DVHHPRES ---
History of Present Illness Resident Creating Document: ADELINA KHAN RESIDENT Reason for Visit: chest pain History of Present Illness 44 year old female patient with past medical history of hypertension ( not well controlled), unstable angina, depression , anxiety and prediabetes who presented to the ER with the chief complaint of chest pain described as stabbing that irradiates to the left arm , rated as 10/10 in intensity , intermittent for the past 3 days , patient reports the pain comes and goes and is not triggered by physical activity and happened even at rest since April this year. She also reports nausea without vomiting, foggy eyes and dizziness with standing, low energy and sleeping more. Reviewing her blood pressure records for this week , she had an isolated episode of hypotension yesterday . Medication marte she is on losartan for blood pressure control , semaglutide in order to control glucose levels and weight control. She ran out of her medications for depression and anxiety since one month ago (doesn't recall the name of the medication) In the ER the blood pressure was on 165/97, cbc and cmp were unremarkable for which the patient was resumed on her home meds. Based on patient symptoms ( chest pain 10/10) we will investigate further with an echocardiogram and EKG. EKG on admission showed sinus rhythm and troponin were <3. Family history: - father: Heart attack - mother : type 2 diabetes, hypertension Surgical history: - 5 c-s - tubal ligation Socially: - alcohol, cigarettes and drugs: denies PCP: doesn't remember the name Cardiology: will have an appointment this Review of Systems Constitutional: No: Fever, Chills, Sweats, Weakness, Malaise, Other Eyes: No: Pain, Vision change, Conjunctivae inflammation, Eyelid inflammation, Other, Redness ENT: No: Ear pain, Ear discharge, Nose pain, Nose discharge, Nose congestion, Mouth pain, Mouth swelling, Throat pain, Throat swelling, Other Respiratory: No: Cough, Dry, Shortness of breath, SOB with excertion, Wheezing, Hemoptysis, Pleuritic Pain, Sputum, Wheezing, Other Cardiovascular: Chest Pain, Lt Headedness Gastrointestinal: Nausea Genitourinary: No Dysuria, No Frequency, No Incontinence, No Hematuria, No Retention, No Other Musculoskeletal: No: other, neck pain, shoulder pain, arm pain, back pain, hand pain, leg pain, foot pain Skin: No: Rash, Lesions, Jaundice, Bruising, Other Neurological: No: Weakness, Numbness, Incoordination, Change in speech, Confusion, Seizures, Other Allergies: Coded Allergies: NO KNOWN ALLERGIES (Unverified , 02/21/19) Medications Current Medications Medications Dose Ordered Sig/Jodi Route Start Time Stop Time Status Last Admin Dose Admin Nitroglycerin 0.4 mg Q5MINP PRN SL 09/05/24 15:30 UNV Morphine Sulfate 2 mg Q30M PRN IV 09/05/24 15:30 UNV Exam Vital Signs Vital Signs Date Time Temp Pulse Resp B/P (MAP) Pulse Ox O2 Delivery O2 Flow Rate FiO2 09/05/24 15:25 81 09/05/24 14:24 98.2 16 165/97 (119) 97 98.2 General Appearance: Alert, Oriented X3, Cooperative, moderate distress HEENT: Atraumatic, PERRLA, EOMI, Mucous membr. moist/pink Respiratory: Clear to auscultation, Normal air movement Cardiovascular: Regular rate, Normal S1, Normal S2, No murmurs, Gallops Abdominal: Normal bowel sounds, Soft, No tenderness, No hepatospenomegaly Extremities: No clubbing, No cyanosis, No edema, Normal pulses, No tenderness/swelling Skin: No rashes, No breakdown, No significant lesion Neuro: Normal gait, Normal speech, Strength at 5/5 X4 ext, Normal tone Psych/Mental Status: Mental status NL, Mood NL, Other Labs/Xrays Labs Test 09/05/24 15:05 09/05/24 14:23 Range/Units Troponin I High Sensitivity 3 L </=34 ng/L White Blood Count 9.5 4.4-10.8 10^3/uL Red Blood Count 4.45 4.0-5.20 10^6/uL Hemoglobin 13.6 12.2-16.2 g/dL Hematocrit 40.7 36.0-46.0 % Mean Corpuscular Volume 91.4 80.0-100.0 fL Mean Corpuscular Hemoglobin 30.5 28.0-32.0 pg Mean Corpuscular Hemoglobin Concent 33.4 32.0-36.0 g/dL Red Cell Distribution Width 13.7 11.8-14.3 % Platelet Count 257 140-450 10^3/uL Mean Platelet Volume 8.4 6.9-10.8 fL Neutrophils (%) (Auto) 70.1 37.0-80.0 % Lymphocytes (%) (Auto) 19.2 10.0-50.0 % Monocytes (%) (Auto) 6.1 0.0-12.0 % Eosinophils (%) (Auto) 4.0 0.0-7.0 % Basophils (%) (Auto) 0.6 0.0-2.0 % Neutrophils # (Auto) 6.6 1.6-8.6 10 ^3/uL Lymphocytes # (Auto) 1.8 0.4-5.4 10 ^3/uL Monocytes # (Auto) 0.6 0-1.3 10 ^3/uL Eosinophils # (Auto) 0.4 0-0.8 10 ^3/uL Basophils # (Auto) 0.1 0-0.2 10 ^3/uL Nucleated Red Blood Cells 0.2 % Prothrombin Time 10.2 9.3-11.8 sec Prothrombin Time INR 0.96 0.9-1.15 Activated Partial Thromboplast Time 31.5 24.5-34.5 SEC Sodium Level 139 136-145 mmol/L Potassium Level 4.1 3.5-5.1 mmol/L Chloride Level 106 98-107 mmol/L Carbon Dioxide Level 27 20-31 mmol/L Anion Gap 6 5-15 Blood Urea Nitrogen 14 9-23 mg/dL Creatinine 0.72 0.550-1.02 mg/dL Glomerular Filtration Rate Calc 107 >90 mL/min BUN/Creatinine Ratio 19.4 10.0-20.0 Serum Glucose 92 74-106 mg/dL Calcium Level 9.6 8.7-10.4 mg/dL Magnesium Level 1.9 1.6-2.6 mg/dL Total Bilirubin 0.4 0.2-1.0 mg/dL Aspartate Amino Transferase (AST) 18 13-40 U/L Alanine Aminotransferase (ALT) 20 7-40 U/L Alkaline Phosphatase 102 46-116 U/L B-Type Natriuretic Peptide 79.81 0-100 pg/mL Total Protein 7.5 5.7-8.2 g/dL Albumin 4.4 3.2-4.8 g/dL Assessment/Plan Assessment/Plan Chest pain cardiac vs non cardiac, rule out ACS Hypertensive urgency morbid obesity prediabetes on semaglutide Plan: admit to telemetry EKG showed sinus rhythm Echocardiogram trending troponin unremarkable aspirin po nitroglycerin po bnp unremarkable TSH Orthostatic vital signs TSH Lipid panel A1C UDS Plan discussed with: Patient My Orders Orders - ADELINA KHAN RESIDENT Procedure Category Date Status Time Admit ADMIT 09/05/24 Transmitted 15:17 Allergies BRIDGER 09/05/24 In Process 15:17 Code Status CODE 09/05/24 Transmitted 15:17 2 Gm Sodium Diet DIET 09/05/24 Transmitted Dinner Complete Blood Count LAB 09/06/24 Verified 04:00 Comprehensive LAB 09/06/24 Verified Metabolic Panel 04:00 Echo 2d Mode Cardiac US 09/05/24 Logged DOP 15:17 Condition: Unstable [facility] 09/05/24 In Process 15:17 Nitroglycerin PHA 09/05/24 Logged Sublingual (Ntrostat 15:30 Morphine Sulfate PHA 09/05/24 Logged Injection 15:30 Oxygen By Nasal RT 09/05/24 Transmitted Cannula 15:17 Notify Of Changes [facility] 09/05/24 In Process From Base 15:17 Associate Principal For [facility] 09/05/24 In Process 24 Hours 15:17 Emergency Dysrhythmia [facility] 09/05/24 In Process Protocol 15:17 Rhythm Strips Once [facility] 09/05/24 In Process Every Shift 15:17 Losartan Tablet [facility] 09/05/24 Logged (Cozaar Tablet) 16:00 Date of Service: September 05, 2024 Billing Provider: KVNG ESPINOZA MD Common Visit Codes: [id number] INP/OBS CARE (HIGH) ADELINA KHAN RESIDENT September 05, 2024 16:19 KVNG ESPINOZA MD September 06, 2024 07:19
[2024-09-05 16:56] LABS: Beta HCG, Quantitative 0.5 mIU/mL (1.5-4.2)
[2024-09-05 17:00] LABS: Thyroid Stimulating Hormone 0.71 uIU/mL (0.55-4.78)
[2024-09-05 17:01] LABS: Triglycerides 104 mg/dL (< 150)
[2024-09-05 17:02] LABS: LDL Cholesterol 144 mg/dL (< 100)
[2024-09-05 17:03] LABS: Cholesterol 193 mg/dL (< 200); HDL Cholesterol 42 mg/dL (40-59)
[2024-09-05 20:25] LABS: Urine Bacteria None Seen /hpf (None Seen)
[2024-09-05 20:53] LABS: Amphetamine Screen, Urine Neg (NEGATIVE); Barbiturate Scree,Urine Neg (NEGATIVE); Benzodiazephine Screen, Urine Neg (NEGATIVE); Cannabinoid Screen, Urine Neg (NEGATIVE); Cocaine Screen, Urine Neg (NEGATIVE); Opiate Scree,Urine Neg (NEGATIVE); Phencyclidine Screen, Urine Neg (NEGATIVE)
[2024-09-05 21:11] LABS: Urine Blood Negative /uL (Negative); Urine Clarity Clear (Clear); Urine Color Light-Yellow (Yellow); Urine Mucus FEW (None Seen); Urine Protein, UAD Negative (Negative); Urine Specific Gravity 1.023 (1.001-1.035); Urine Squamous Epithelial Cell MOD /hpf (<5); Urine Urobilinogen Normal (Negative); Urine WBC < 1 /HPF (0-5); Urine pH 6.5 (5.0-9.0)
[2024-09-06] MEDS: KETOROLAC TROMETH 30 MG/ML 1ML VIAL IV PRN (04:28)
[2024-09-06] MEDS: ONDANSETRON HCL 4 MG/2 ML VIAL IV PRN (04:29)
[2024-09-06 05:00] VITALS: BP 103/57; PULSE 65; RESP 16; TEMP 98.4; O2SAT 95
[2024-09-06 06:51] LABS: Basophils # (auto) 0 10 ^3/uL (0-0.2); Basophils % (auto) 0.5 % (0.0-2.0); Eosinophils # (auto) 0.4 10 ^3/uL (0-0.8); Hematocrit 39.6 % (36.0-46.0); Hemoglobin 13.2 g/dL (12.2-16.2); Lymphocytes # (auto) 1.4 10 ^3/uL (0.4-5.4); Lymphocytes % (auto) 15.3 % (10.0-50.0); Mean Corpuscular Hemoglobin 30.6 pg (28.0-32.0); Mean Corpuscular Hgb Conc. 33.4 g/dL (32.0-36.0); Mean Corpuscular Volume 91.7 fL (80.0-100.0); Monocytes # (auto) 0.7 10 ^3/uL (0-1.3); Monocytes % (auto) 7.4 % (0.0-12.0); Neutrophils # (auto) 6.4 10 ^3/uL (1.6-8.6); Neutrophils % (auto) 72.8 % (37.0-80.0); Nucleated Red Blood Cells % 0.1 %; Platelet Count (auto) 165 10^3/uL (140-450); Red Blood Cells 4.32 10^6/uL (4.0-5.20); Red Cell Distribution Width 13.6 % (11.8-14.3); White Blood Cell 8.8 10^3/uL (4.4-10.8)
[2024-09-06 07:02] LABS: Alanine Aminotransferase 20 U/L (7-40); Albumin 4.1 g/dL (3.2-4.8); Alkaline Phosphatase 105 U/L (46-116); Anion Gap 6 (5-15); Aspartate Aminotransferase 18 U/L (13-40); BUN/Creatinine Ratio 19.2 (10.0-20.0); Blood Urea Nitrogen 14 mg/dL (9-23); Calcium 9.6 mg/dL (8.7-10.4); Carbon Dioxide 26 mmol/L (20-31); Glucose 98 mg/dL (74-106); Potassium 4.1 mmol/L (3.5-5.1); Sodium 140 mmol/L (136-145); Total Protein 7.1 g/dL (5.7-8.2)
[2024-09-06 07:03] LABS: Bilirubin, Total 0.4 mg/dL (0.2-1.0)
[2024-09-06 07:08] LABS: Chloride 108 mmol/L (98-107)
[2024-09-06 09:00] VITALS: BP 102/48; PULSE 70; RESP 16; TEMP 98; O2SAT 97
--- NOTE | 2024-09-06 10:30 | ECG ---
[facility] Test Date: 2024-09-05 Test Time: 14:18:13 Pat Name: BRENT BLACK Department: ER Room: [address] [place] [address] Gender: F Hand Rounder: ASHLEY : 1980 Requested By: SEVEN BHATIA Order Number: [id number] Reading MD: Dick Kee Measurements Intervals [place] Rate: 85 P: 41 MD: 156 QRS: -28 QRSD: 96 T: 69 QT: 367 QTc: 437 Interpretive Statements Sinus rhythm Borderline left axis deviation Low voltage, precordial leads Consider anterior infarct Electronically Signed On 09-10-2024 21:55:09 PDT by Dick Kee Please click the below link to view image of tracing.
--- NOTE | 2024-09-06 10:45 | DVHPNRES ---
Progress Note Date Seen: September 06, 2024 Resident Creating Document: MARIAH COLIN RESIDENT Has the PT tested + for MRSA If YES, has PT been informed?: No Medical Necessity Reason Pt with a Central, PICC or Fol: No Subjective Review of Systems Stefany Griffin44-year-old female with a PMH of HTN, unstable angina, depression, anxiety, prediabetes presented to the ED with the chief complaints chest pain for last 2 days. Patient reported the pain is like burning or sharp with no radiation, no aggravating or relieving factors. Patient reported that she had appointment with auto transmission technician tomorrow. Patient seen and examined at the bedside. Patient is still reporting having mild pain. Troponins, EKG showed no acute changes, consulted cardiology for further evaluation. Objective vital signs Vital Sign Date Time Temp Pulse Resp B/P (MAP) Pulse Ox O2 Delivery O2 Flow Rate FiO2 09/06/24 09:00 98.0 70 16 102/48 (66) 97 98.0 09/06/24 00:28 Room Air 09/05/24 18:24 0 21 medications Current Medications Medications Dose Ordered Sig/Jodi Route Start Time Stop Time Status Last Admin Dose Admin Nitroglycerin 0.4 mg Q5MINP PRN SL 09/05/24 15:30 Morphine Sulfate 2 mg Q30M PRN IV 09/05/24 15:30 Ketorolac Tromethamine 15 mg Q8HPRN PRN IV 09/06/24 04:00 09/11/24 03:59 09/06/24 04:28 15 MG Ondansetron HCl 4 mg Q8HPRN PRN IV 09/06/24 04:00 09/06/24 04:29 4 MG Examination Pt is lying on bed General Appearance: Alert, Oriented X3, Cooperative, Not in acute distress HEENT: Atraumatic, Mucous membranes moist/pink Respiratory: Clear to auscultation, Normal air movement, No added sounds Cardiovascular: Regular rate, Normal S1, Normal S2,Left chest wall tenderness Abdominal: Active bowel sounds, Soft, no distention, no tenderness Extremities: No edema, Normal pulses, No tenderness/swelling Skin: No Significant rash, except past surgical scars Neuro: Normal speech, sensorimotor deficits none Psych/Mental Status: Mental status NL, Mood NL Nurse was there as carlyne during examination laboratory and microbiology Laboratory Tests 09/06/24 05:53 Test 09/06/24 05:53 Range/Units Serum Glucose 98 74-106 mg/dL Labs and/or images reviewed: Labs reviewed by me, Image(s) reviewed by me Problem List/Assessment/Plan Problem List/Assessment/Plan # chest pain rule out ACS - telemetry - chest pain protocol - EKG showed no ST changes, normal sinus rhythm - Troponins negative - cardiology consult # ? costochondritis - pain management # hypertensive urgency-improved - continuously monitor # morbid obesity with a BMI 52.8 - counseled regarding lifestyle modifications # prediabetes with HbA1c 5.7 - Accu-Cheks No GI PPX Patient is ambulatory no VTE PPX Cardiac diet Goals of care discussed with the patient for more than 29 minutes: Full code status Case discussed with Dr. Ott, patient and nurse Plan discussed with: Patient My Orders My Orders Orders - MARIAH COLIN Procedure Category Date Status Time * Cardiology Consult CONS 09/06/24 Transmitted 10:36 MARIAH COLIN RESIDENT September 06, 2024 10:45
[2024-09-06 13:00] VITALS: BP 114/72; PULSE 67; RESP 16; TEMP 98.6; O2SAT 95
--- NOTE | 2024-09-07 08:57 | DVHDSRES ---
Discharge Summary Date of Admission Resident Creating Document: MARIAH COLIN RESIDENT September 05, 2024 at 15:17 Date of Discharge: September 07, 2024 Admitting Diagnosis Chest pain Labs/Diagnostic Data: Laboratory Results Test 09/06/24 05:53 09/05/24 20:00 09/05/24 15:05 09/05/24 14:23 White Blood Count 8.8 10^3/uL (4.4-10.8) Red Blood Count 4.32 10^6/uL (4.0-5.20) Hemoglobin 13.2 g/dL (12.2-16.2) Hematocrit 39.6 % (36.0-46.0) Mean Corpuscular Volume 91.7 fL (80.0-100.0) Mean Corpuscular Hemoglobin 30.6 pg (28.0-32.0) Mean Corpuscular Hemoglobin Concent 33.4 g/dL (32.0-36.0) Red Cell Distribution Width 13.6 % (11.8-14.3) Platelet Count 165 10^3/uL (140-450) Mean Platelet Volume 9.0 fL (6.9-10.8) Neutrophils (%) (Auto) 72.8 % (37.0-80.0) Lymphocytes (%) (Auto) 15.3 % (10.0-50.0) Monocytes (%) (Auto) 7.4 % (0.0-12.0) Eosinophils (%) (Auto) 4.0 % (0.0-7.0) Basophils (%) (Auto) 0.5 % (0.0-2.0) Neutrophils # (Auto) 6.4 10 ^3/uL (1.6-8.6) Lymphocytes # (Auto) 1.4 10 ^3/uL (0.4-5.4) Monocytes # (Auto) 0.7 10 ^3/uL (0-1.3) Eosinophils # (Auto) 0.4 10 ^3/uL (0-0.8) Basophils # (Auto) 0 10 ^3/uL (0-0.2) Nucleated Red Blood Cells 0.1 % Sodium Level 140 mmol/L (136-145) Potassium Level 4.1 mmol/L (3.5-5.1) Chloride Level 108 mmol/L (98-107) Carbon Dioxide Level 26 mmol/L (20-31) Anion Gap 6 (5-15) Blood Urea Nitrogen 14 mg/dL (9-23) Creatinine 0.73 mg/dL (0.550-1.02) Glomerular Filtration Rate Calc 105 mL/min (>90) BUN/Creatinine Ratio 19.2 (10.0-20.0) Serum Glucose 98 mg/dL (74-106) Calcium Level 9.6 mg/dL (8.7-10.4) Total Bilirubin 0.4 mg/dL (0.2-1.0) Aspartate Amino Transferase (AST) 18 U/L (13-40) Alanine Aminotransferase (ALT) 20 U/L (7-40) Alkaline Phosphatase 105 U/L (46-116) Total Protein 7.1 g/dL (5.7-8.2) Albumin 4.1 g/dL (3.2-4.8) Urine Color Light-yellow (Yellow) Urine Clarity Clear (Clear) Urine pH 6.5 (5.0-9.0) Urine Specific [place] 1.023 (1.001-1.035) Urine Protein Negative (Negative) Urine Ketones Negative (Negative) Urine Blood Negative /uL (Negative) Urine Nitrite Negative (Negative) Urine Bilirubin Negative (Negative) Urine Urobilinogen Normal mg/dL (Negative) Urine Leukocyte Esterase Negative /uL (Negative) Urine RBC 2 /hpf (0 - 4) Urine Microscopic WBC < 1 /HPF (0-5) Urine Squamous Epithelial Cells Mod /hpf (<5) Urine Bacteria None seen /hpf (None Seen) Urine Mucus Few (None Seen) Urine Glucose Normal mg/dL (Normal) Urine Opiates Screen Neg (NEGATIVE) Urine Fentanyl Screen Neg (NEGATIVE) Urine Barbiturates Screen Neg (NEGATIVE) Urine Phencyclidine Screen Neg (NEGATIVE) Urine Amphetamines Screen Neg (NEGATIVE) Urine Benzodiazepines Screen Neg (NEGATIVE) Urine Cocaine Screen Neg (NEGATIVE) Urine Cannabinoids Screen Neg (NEGATIVE) Troponin I High Sensitivity 3 ng/L (</=34) Prothrombin Time 10.2 sec (9.3-11.8) Prothrombin Time INR 0.96 (0.9-1.15) Activated Partial Thromboplast Time 31.5 SEC (24.5-34.5) Hemoglobin A1c 5.4 % A1C (<5.7) Magnesium Level 1.9 mg/dL (1.6-2.6) B-Type Natriuretic Peptide 79.81 pg/mL (0-100) Triglycerides Level 104 mg/dL (< 150) Cholesterol Level 193 mg/dL (< 200) LDL Cholesterol 144 mg/dL (< 100) HDL Cholesterol 42 mg/dL (40-59) Thyroid Stimulating Hormone (TSH) 0.71 uIU/mL (0.55-4.78) Beta HCG, Quantitative 0.5 mIU/mL (1.5-4.2) Other Laboratory Tests 09/06/24 05:53 Brief Hx & Hospital Course: Stefany Griffin44-year-old female with a PMH of HTN, unstable angina, depression, anxiety, prediabetes presented to the ED with the chief complaints chest pain for last 2 days. Patient reported the pain is like burning or sharp with no radiation, no aggravating or relieving factors. Patient reported that she had appointment with fiber analyst tomorrow. Patient required hospital admission for the evaluation and management of chest pain. EKG showed no ST changes, normal sinus rhythm, troponins were negative. Due to atypical chest pain cardiology was consulted. patient was not hypertensive urgency, continuously monitored. Did not morbid obesity patient was given lifestyle modifications including diet and exercise. Patient was not yet seen by fiber analyst but patient want to leave AMA despite of explaining risks of leaving AMA. Patient advised to stay for further stabilization. Patient verbalized understanding. Patient was encouraged to return to ED if symptoms did not improve or worsen. Condition at Discharge: Undetermined Final Diagnosis/Problems List # chest pain ruled out ACS # ? costochondritis # hypertensive urgency-improved # morbid obesity with a BMI 52.8 # prediabetes with HbA1c 5.7 Discharge Disposition: AMA Discharge Statement: "Patient was advised to return to the ER or call 911 if any headaches, dizziness, shortness of breath, chest pain, abdominal pain, bleeding, fevers, or worsening of medical condition. Patient was counseled about treatment plan, medications, possible side effects, patientverbalized understanding. All questions were answered to the best of my ability. This discharge took greater then 30 minutes in planning, reviewing documentation, counseling the patient, and discussing with other team members." ASSESSMENT ASSESSMENT Assessment MARIAH COLIN RESIDENT September 07, 2024 08:57
--- NOTE | 2024-09-08 16:07 | DVHSR ---
APPROVED REPORT EXAM: Two-dimensional and M-mode echocardiogram with Doppler and color Doppler. Blood Pressure: 165/97 mmHg INDICATION Chest Pain RISK FACTORS Obesity: Height: 5'2", Weight: 288 DIMENSIONS LVDd4.4 (3.8-5.7cm)LA (2D)3.7 (1.9-4.0cm)Aortic Root3.0 (2.0-3.7cm) LVDs3.0 (2.5-4.0cm)LA (MM) (1.9-4.0cm)Aortic Cusp Exc2.0 (1.5-2.0cm) EF (%) 60.0 (55-70%)Rt. Atrium3.9 (1.9-4.0cm)Asc. Aorta cm IVSd1.1 (0.7-1.1cm)RV (D) (1.8-2.4cm) PWd1.0 (0.7-1.1cm) Mitral Valve MitralMitral Stenosis E wave0.73m/sMV Mean GR.mmHg A wave0.65m/sMV Peak GR.mmHg E/A ratio1.12D MVAcm2 DECEL [id number] 1/2 Timems Aortic Valve Aortic ValveAortic Stenosis V10.97m/Richard Mean GR.4mmHg V21.37m/Richard Peak GR.8mmHg LVOT Diameter2.1 (1.8-2.4cm)Doppler AVA2.45cm2 Other Information Quality : LimitedRhythm : Technically limited study due to body habitus. Conclusion Technically good study. Sinus rhythm. Normal chamber sizes. Valves are normal. EF of 60% with normal RV function. Dopplers unremarkable. No pericardial effusion masses or vegetations.
== END 2024-09-06 14:49 | disposition left against medical advice (07) | DRG 203 ==
LOC: ER 14:12 → OVERFLOW 15:17
PROVIDERS: ADMIT Internal Medicine Geriatric Medicine; ATTEND Internal Medicine Geriatric Medicine
DX: M94.0 Chondrocostal junction syndrome [Tietze] (principal); E66.01 Morbid (severe) obesity due to excess calories; I16.0 Hypertensive urgency; F41.9 Anxiety disorder, unspecified; I10 Essential (primary) hypertension; R73.03 Prediabetes; Z53.29 Procedure and treatment not carried out because of patient's decision for other reasons; Z82.49 Family history of ischemic heart disease and other diseases of the circulatory system; Z83.3 Family history of diabetes mellitus; Z98.51 Tubal ligation status
CPT/HCPCS: 36415; 71045; 80053; 80061; 80307; 81001; 83036; 83735; 83880; 84443; 84484; 84702; 85025; 85610; 85730; 93005; 93306; 99291; 99292; G0378; J1885; J2405

== ENCOUNTER 2024-11-22 17:22 | Emergency (ER) | payer OTHER ==
[~2024-11-22] VITALS: Ht 157.5 cm; Wt 132.6 kg
--- NOTE | 2024-11-22 17:31 | ECG ---
[facility] [place] [facility] Test Date: 2024-11-22 Test Time: 17:29:55 Pat Name: BRENT BLACK [facility] Patient [id number] Room: Gender: F Corporate Associate: AKUA : 1980 Requested By: KISHORE RIDER Order Number: [id number] Reading MD: Dick Kee Measurements Intervals [place] Rate: 84 P: 42 AL: 158 QRS: -25 QRSD: 98 T: 60 QT: 365 QTc: 432 Interpretive Statements Sinus rhythm Borderline left axis deviation Low voltage, precordial leads Electronically Signed On 11-27-2024 22:41:01 PDT by Dick Kee Please click the below link to view image of tracing.
--- NOTE | 2024-11-22 19:34 | DVH ---
EXAM: XY CHEST TWO VIEWS ROUTINE CLINICAL HISTORY: Palpitation TECHNIQUE: Frontal and lateral views of the chest WID: COMPARISON: XY CHEST PORTABLE on DOS: 09/05/24 FINDINGS: Lines and tubes: None Chest: The heart size and pulmonary vasculature is within normal limits. No pleural effusion, pneumothorax, or consolidation. The osseous structures are grossly intact. Mild multilevel thoracic spondylosis. IMPRESSION: No acute cardiopulmonary abnormality.
[2024-11-22 19:41] LABS: Hematocrit 40.0 % (36.0-46.0); Hemoglobin 13.6 g/dL (12.2-16.2); Mean Corpuscular Hemoglobin 31.3 pg (28.0-32.0); Mean Corpuscular Volume 92.3 fL (80.0-100.0); Nucleated Red Blood Cells % 0.1 %
[2024-11-22 19:49] LABS: Albumin 4.2 g/dL (3.2-4.8); Alkaline Phosphatase 112 U/L (46-116); Anion Gap 7 (5-15); BUN/Creatinine Ratio 15.9 (10.0-20.0); Blood Urea Nitrogen 13 mg/dL (9-23); Calcium 9.0 mg/dL (8.7-10.4); Carbon Dioxide 26 mmol/L (20-31); Glucose 99 mg/dL (74-106); Magnesium 1.9 mg/dL (1.6-2.6); Potassium 4.2 mmol/L (3.5-5.1); Sodium 144 mmol/L (136-145); Total Protein 6.9 g/dL (5.7-8.2)
[2024-11-22 19:54] LABS: Alanine Aminotransferase 42 U/L (7-40); Bilirubin, Total 0.3 mg/dL (0.2-1.0); Chloride 111 mmol/L (98-107)
--- NOTE | 2024-11-22 20:07 | ED.PDOC ---
HPI Comments 44y F who presents to the ED for chief complaint of palpitations. Pt states she has been having palpitations for the past 3 days with associated chills. Pt states she has also been having L ankle swelling. Pt states she has seen head of operation and logistics and states she was told she has R heart is enlarged from history of sleep apnea but otherwise head of operation and logistics stated pt stress test and all labs were in normal range. Pt in the ED, has heart rate of 96 with otherwise all other vitals in normal range. Pt denies any other symptoms at this time. Chief Complaint: Palpitations Time Seen by MD: 20:00 Primary Care Provider: KATEY RAMIREZ Reviewed Notes: Medications, Allergies Allergies: Coded Allergies: NO KNOWN ALLERGIES (Unverified , 02/21/19) Home Meds Active Scripts Atenolol (Atenolol) 25 Mg Tab, 1 TAB PO Q.h.s. for 15 Days, #15 TAB 5 Refills Prov:KISHORE RIDER MD 11/22/24 Nitroglycerin (Nitrostat) 0.4 Mg Sub, 0.4 MG SL Q6HP PRN, #20 INJ Prov:ARACELIS OMER PAC 07/27/24 Losartan Potassium (Losartan Potassium) 50 Mg Tab, 1 TAB PO DAILY, #30 TAB 5 Refills Prov:FRANCIS ESPARZA MD 03/19/24 Ibuprofen (Ibuprofen) 800 Mg Tab, 1 TAB PO TID PRN, #30 TAB 0 Refills Prov:RADHA DILLARD 02/23/24 Pantoprazole Sodium Sesquihydr (Protonix) 40 Mg Tab, 40 MG PO DAILY for 10 Days, #10 TAB Prov:DENVER HIGGINS MD 10/24/23 Meloxicam (Meloxicam) 7.5 Mg Tab, 1 TAB PO DAILYP PRN for 30 Days, #30 TAB 0 Refills Prov:AMI ABBOTT STEERSMAN 07/13/23 Azithromycin (Azithromycin) 500 Mg Tab, 1 TAB PO DAILY, #5 TAB Prov:ED MANSFIELD 04/10/23 Promethazine-Dm (Promethazine Dm 6.25-15 mg/5Ml) 1 Mery Mery, 5 ML PO TID, #160 ML Prov:ED MANSFIELD 04/10/23 Docusate Sodium (Colace) 100 Mg Cap, 1 CAP PO BID for 10 Days, #20 CAP As needed for constipaton Prov:MINERVA SAMUELS STEERSMAN 12/27/22 Ondansetron Odt 4MG Tab (ZOFRAN PO) 4 Mg Tb, 1 TAB PO Q8HR, #20 TAB ODT TAB-DISSOLVE IN MOUTH, THEN SWALLOW as needed for nausea vomit Prov:MINERVA SAMUELS STEERSMAN 12/27/22 Hydrocodone-Acetaminophen (Hydrocodone Bitartrate/AC 5-325 mg) 1 Tab Tab, 1 TAB PO Q6HR, #12 TAB as needed for pain Prov:MINERVA SAMUELS STEERSMAN 12/27/22 Information Source: Patient Mode of Arrival: Ambulatory Past Medical History PAST MEDICAL HISTORY: Angina, Anxiety, HTN Surgical History: , 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 Family History Family History: Reviewed,noncontributory to illness, Family hx of DM Social History Smoker: Non-Smoker Alcohol: Denies ETOH Use Drugs: Denies Drug Use Lives In: Home Constitutional: denies: chills, diaphoresis, fatigue, fever, malaise, sweats, weakness, others EENTM: denies: blurred vision, double vision, ear bleeding, ear discharge, ear drainage, ear pain, ear ringing, eye pain, eye redness, hearing loss, mouth pain, mouth swelling, nasal discharge, nose bleeding, nose congestion, nose pain, photophobia, tearing, throat pain, throat swelling, voice changes, others Respiratory: denies: cough, hemoptysis, orthopnea, SOB at rest, shortness of breath, SOB with excertion, stridor, wheezing, others Cardiovascular: reports: palpitations; denies: chest pain, dizzy spells, diaph oresis, Dyspnea on exertion, edema, irregular heart beat, left arm pain, lightheadedness, PND, syncope, others Gastrointestinal: denies: abdomen distended, abdominal pain, blood streaked bowels, constipated, diarrhea, dysphagia, difficulty swallowing, hematemesis, melena, nausea, poor appetite, poor fluid intake, rectal bleeding, rectal pain, vomiting, others Genitourinary: denies: abnormal vagina bleeding, burning, dyspareunia, dysuria, flank pain, frequency, hematuria, incontinence, pain, , vagina discharge, urgency, others Neurological: denies: dizziness, fainting, headache, left sided numbness, left sided weakness, numbness, paresthesia, pre-existing deficit, right sided numbness, right sided weakness, seizure, speech problems, tingling, tremors, weakness, others Musculoskeletal: denies: back pain, gout, joint pain, joint swelling, muscle pain, muscle stiffness, neck pain, others Integumetry: denies: bruises, change in color, change in hair/nails, dryness, laceration, lesions, lumps, rash, wounds, others Allergic/Immunocompromised: denies: Difficulty Healing, Frequent Infections, Hives, Itching, others Hematologic/Lymphatic: denies: anemia, blood clots, easy bleeding, easy bruising, swollen glands, others Endocrine: denies: excessive hunger, excessive sweating, excessive thirst, excessive urination, flushing, intolerance to cold, intolerance to heat, unexplained weight gain, unexplained weight loss, others Psychiatric: denies: anxiety, bipolar disorder, depression, hopeless, panic disorder, schizophrenia, sleepless, suicidal, others All Other Systems: Reviewed and Negative Physical Exam General Appearance: Mild Distress, Obese HEENT: Normal ENT Inspection, Pharynx Normal, TMs Normal Neck: Full Range of Motion, Non-Tender, Normal, Normal Inspection Respiratory: Chest Non-Tender, Lungs Clear, No Accessory Muscle Use, No Respiratory Distress, Normal Breath Sounds Cardiovascular: No Edema, No JVD, No Murmur, No Gallop, Normal Peripheral Pulses, Regular Rate/Rhythm Breast Exam: Deferred Gastrointestinal: No Organomegaly, Non Tender, No Pulsatile Mass, Normal Bowel Sounds, Soft Genitalia: Deferred Pelvic: Deferred Rectal: Deferred Extremities: Calf tenderness Neurologic: Alert, fitter's assistant II-XII nml as Tested, No Motor Deficits, Normal Affect, Normal Mood, No Sensory Deficits Cerebellar Function: Normal Reflexes: Normal Skin: Dry, Normal Color, Warm Peripheral Pulses: 1+ carotid (R), 1+ carotid (L) Lymphatic: No Adenopathy EKG EKG : Pulse Rate (adult): 84 [place]: LAD Cardiac Rhythm: NSR Was a procedure done? Was a procedure done?: No CP Differential Dx Differential Diagnosis: A-fib, A-Flutter, Angina, Anxiety / Panic Attack, Electrolyte Disorder, PSVT, Sinus Tachycardia Differential Diagnosis: HTN Essential Differential Diagnosis: Angina, Chest Wall Pain, Costochondritis, Esophageal reflux/spasm, Pneumonia X-Ray, Labs, Meds, VS Vital Signs Date Time Temp Pulse Resp B/P (MAP) Pulse Ox O2 Delivery O2 Flow Rate FiO2 11/22/24 21:33 97.6 16 144/82 (102) 96 97.6 11/22/24 20:12 84 11/22/24 20:00 98.7 62 16 126/69 (88) 95 98.7 11/22/24 18:29 71 11/22/24 17:29 84 11/22/24 17:23 98.2 96 20 136/80 96 98.2 Lab Test 11/22/24 20:45 11/22/24 19:09 11/22/24 17:56 Range/Units Troponin I High Sensitivity < 3 L 3 L < 3 L </=34 ng/L White Blood Count 8.5 4.4-10.8 10^3/uL Red Blood Count 4.33 4.0-5.20 10^6/uL Hemoglobin 13.6 12.2-16.2 g/dL Hematocrit 40.0 36.0-46.0 % Mean Corpuscular Volume 92.3 80.0-100.0 fL Mean Corpuscular Hemoglobin 31.3 28.0-32.0 pg Mean Corpuscular Hemoglobin Concent 33.9 32.0-36.0 g/dL Red Cell Distribution Width 14.5 H 11.8-14.3 % Platelet Count 206 140-450 10^3/uL Mean Platelet Volume 9.9 6.9-10.8 fL Neutrophils (%) (Auto) 66.8 37.0-80.0 % Lymphocytes (%) (Auto) 20.3 10.0-50.0 % Monocytes (%) (Auto) 9.7 0.0-12.0 % Eosinophils (%) (Auto) 2.7 0.0-7.0 % Basophils (%) (Auto) 0.5 0.0-2.0 % Neutrophils # (Auto) 5.7 1.6-8.6 10 ^3/uL Lymphocytes # (Auto) 1.7 0.4-5.4 10 ^3/uL Monocytes # (Auto) 0.8 0-1.3 10 ^3/uL Eosinophils # (Auto) 0.2 0-0.8 10 ^3/uL Basophils # (Auto) 0 0-0.2 10 ^3/uL Nucleated Red Blood Cells 0.1 % Prothrombin Time 9.7 9.3-11.8 sec Prothrombin Time INR 0.91 0.9-1.15 Activated Partial Thromboplast Time 30.5 24.5-34.5 SEC D-Dimer, Quantitative 0.26 0.0-0.49 mg/L FEU Sodium Level 144 136-145 mmol/L Potassium Level 4.2 3.5-5.1 mmol/L Chloride Level 111 H 98-107 mmol/L Carbon Dioxide Level 26 20-31 mmol/L Anion Gap 7 5-15 Blood Urea Nitrogen 13 9-23 mg/dL Creatinine 0.82 0.550-1.02 mg/dL Glomerular Filtration Rate Calc 92 >90 mL/min BUN/Creatinine Ratio 15.9 10.0-20.0 Serum Glucose 99 74-106 mg/dL Calcium Level 9.0 8.7-10.4 mg/dL Magnesium Level 1.9 1.6-2.6 mg/dL Total Bilirubin 0.3 0.2-1.0 mg/dL Aspartate Amino Transferase (AST) 33 13-40 U/L Alanine Aminotransferase (ALT) 42 H 7-40 U/L Alkaline Phosphatase 112 46-116 U/L Total Protein 6.9 5.7-8.2 g/dL Albumin 4.2 3.2-4.8 g/dL Thyroid Stimulating Hormone (TSH) 1.10 0.55-4.78 uIU/mL Beta HCG, Quantitative 0.5 L 1.5-4.2 mIU/mL [place] [address] Ph: [phone] DIAGNOSTIC IMAGING Diagnostic Imaging Report : [id number] Signed [facility] [id number] UNIT: [id number] : 1980 LOC: ER ROOM / BED: / AGE / SEX: 44 / F ADM STATUS: REG ER SERVICE [id number] ORDERING PHYSICIAN: KISHORE RIDER MD PROCEDURE(s): CXR2 - CHEST TWO VIEWS ROUTINE REASON: Palpitation ORDER NUMBER(s): [id number], ACCESSION NUMBER(s): [id number] EXAM: XY CHEST TWO VIEWS ROUTINE CLINICAL HISTORY: Palpitation TECHNIQUE: Frontal and lateral views of the chest WID: COMPARISON: XY CHEST PORTABLE on DOS: 09/05/24 FINDINGS: Lines and tubes: None Chest: The heart size and pulmonary vasculature is within normal limits. No pleural effusion, pneumothorax, or consolidation. The osseous structures are grossly intact. Mild multilevel thoracic spondylosis. IMPRESSION: No acute cardiopulmonary abnormality. ATED BY: CINTIA BLAKE MD DICTATED DATE/TIME: 11/22/241930 SIGNED BY: CINTIA BLAKE MD SIGNED DATE/TIME: 11/22/241930 CC: X-Ray, Labs, Meds, VS Comment Course in the emergency department eventful patient came in complaining of palpitation for the past three days Chest x-ray is normal EKG shows normal sinus rhythm at 84 with left axis deviation 2nd EKG shows normal sinus rhythm at 74 Troponin three and three CBC 8500 with 66.6% neutrophils normal H&H CMP negative CMP negative Urine pending pending Patient will be discharged home to follow up with the head of operation and logistics Time of 1ST Reevaluation: 20:00 Reevaluation 1ST: Unchanged Time of 2ND Reevaluation: 20:41 Reevaluation 2ND: Improved Consultation: PCP, Cardiology Patient Education/Counseling: Diagnosis, Treatment, Prognosis, Need For Follow Up Family Education/Counseling: Diagnosis, Treatment, Prognosis, Need For Follow Up, No Family Present SEPSIS Sepsis Screen Date sepsis recognized/suspect: Nov 22, 2024 Time Sepsis recognized/suspect: 1724 Recent Procedure: No On Antibiotic Therapy: No Respiratory Rate >20: No Heart Rate >90: No Temp<36 C (96.8 F) or >38.3 C: No SBP <90 or MAP <65 mmHG: No New Acute Mental Status Change: No Is the patient on CPAP, BIPAP,: No Physician Orders Electrocardigram (11/22/24 18:27) Electrocardigram (11/22/24 20:27) Heplock Iv (11/22/24 18:57) Blood Pressure (11/22/24 18:57) Chest Two Views Routine (11/22/24 18:57) Urinalysis (11/22/24 18:57) Vital Signs Date Time Temp Pulse Resp B/P (MAP) Pulse Ox O2 Delivery O2 Flow Rate FiO2 11/22/24 21:33 97.6 16 144/82 (102) 96 97.6 11/22/24 20:12 84 11/22/24 20:00 98.7 62 16 126/69 (88) 95 98.7 11/22/24 18:29 71 11/22/24 17:29 84 11/22/24 17:23 98.2 96 20 136/80 96 98.2 Laboratory Tests Test 11/22/24 17:56 White Blood Count 8.5 10^3/uL (4.4-10.8) Departure 1 Departure Time of Disposition: 20:39 Impression: Primary Impression: Palpitations Additional Impression: Paroxysmal SVT (supraventricular tachycardia) Disposition: HOME / SELF CARE / HOMELESS Condition: Fair Additional Instructions: Follow up with your head of operation and logistics e-Prescriptions Atenolol (Atenolol) 25 Mg Tab 1 TAB PO Q.h.s. for 15 Days, #15 TAB 5 Refills Prov: KISHORE RIDER MD 11/22/24 Discharged With: Self Critical Care Note Critical Care Time?: No Stability Stability form required: No Heart Score Heart Score: Heart Score Response (Comments) Value History Slightly Suspicious 0 EKG Normal 0 Age <45 0 Risk Factors 1 or 2 risk factors 1 Troponin Normal limit 0 Total 1 I personally scribed for KISHORE RIDER MD ([email or web address]) on 11/22/24 at 20:07. Electronically submitted by Mauricio Kan ([email or web address]). I personally scribed for KISHORE RIDER MD ([email or web address]) on 11/22/24 at 20:12. Electronically submitted by Mauricio Kan ([email or web address]). KISHORE RIDER MD Nov 22, 2024 20:07
[2024-11-22 20:08] LABS: Prothrombin Time 9.7 sec (9.3-11.8)
[2024-11-22 20:09] LABS: INR 0.91 (0.9-1.15); Partial Thromboplastin Time 30.5 SEC (24.5-34.5)
[2024-11-22 20:12] VITALS: PULSE 84
[2024-11-22 20:15] LABS: Beta HCG, Quantitative 0.5 mIU/mL (1.5-4.2); Thyroid Stimulating Hormone 1.1 uIU/mL (0.55-4.78)
[2024-11-22] MEDS ORDERED: ATEN-60 PO (20:41)
[2024-11-22 21:33] VITALS: BP 144/82; RESP 16; TEMP 97.6; O2SAT 96
--- NOTE | 2024-11-27 10:58 | ECG ---
[facility] Test Date: 2024-11-22 Test Time: 18:29:48 Pat Name: BRENT BLACK Department: Room: Gender: F Truck Shop Mechanic: KRYSTAL : 1980 Requested By: KISHORE RIDER Order Number: [id number] Reading MD: Dick Kee Measurements Intervals [place] Rate: 71 P: 34 OR: 147 QRS: -16 QRSD: 98 T: 62 QT: 381 QTc: 414 Interpretive Statements Sinus rhythm Borderline left axis deviation Low voltage, precordial leads Minimal ST elevation, inferior leads Electronically Signed On 11-27-2024 22:41:17 PDT by Dick Kee Please click the below link to view image of tracing.
== END 2024-11-22 21:35 | disposition home or self-care (01) ==
LOC: ER 17:22
DX: I47.19 Other supraventricular tachycardia (principal); R00.2 Palpitations; R10.2 Pelvic and perineal pain; F41.9 Anxiety disorder, unspecified; I20.9 Angina pectoris, unspecified; I10 Essential (primary) hypertension; Z79.899 Other long term (current) drug therapy; Z98.51 Tubal ligation status; Z98.890 Other specified postprocedural states
CPT/HCPCS: 36415; 71046; 80053; 83735; 84443; 84484; 84702; 85025; 85379; 85610; 85730; 93005

== ENCOUNTER 2024-12-23 18:43 | Emergency (ER) | payer OTHER ==
[~2024-12-23] VITALS: Ht 157.5 cm; Wt 134.4 kg
[~2024-12-23 18:43] MED LIST changes: +ATEN-60 PO
[2024-12-23 18:45] VITALS: BP 158/84; PULSE 95; RESP 18; TEMP 98.7; O2SAT 97
[2024-12-23] MEDS ORDERED: ALPRAZolam 0.5 MG TAB PO ONE (19:00)
--- NOTE | 2024-12-23 19:03 | ECG ---
[facility] Test Date: 2024-12-23 Test Time: 19:02:48 Pat Name: BRENT BLACK Department: [facility] ED Patient ID: [facility]-[id number] Room: Gender: F Training Instructor: rody : 1980 Requested By: ARACELIS OMER Order Number: [id number] Reading MD: Dick Kee Measurements Intervals [place] Rate: 96 P: 49 GA: 157 QRS: -30 QRSD: 97 T: 58 QT: 352 QTc: 445 Interpretive Statements Sinus rhythm Left axis deviation Low voltage, precordial leads Abnormal R-wave progression, late transition Electronically Signed On 12-27-2024 9:34:44 PDT by Dick Kee Please click the below link to view image of tracing.
--- NOTE | 2024-12-23 19:20 | ED.PDOC ---
History of Present Illness HPI Comments This is a 44 year-old female, with a Hx ofd Asthma and Anxiety, who presents to the ED with a chief complaint of substernal chest pressure and headache as of yesterday. Patient states onset of symptoms began spontaneously yesterday while cleaning her house. Patient states this feels similar to her usual anxiety symptoms. Patient has no further complaints at this time. Patient otherwise denies palpitations, N/V, fever, chills, or cough. Chief Complaint: Shortness of Breath Time Seen by MD: 19:06 Primary Care Provider: [facility] Reviewed Notes: Nurses Notes, Medications, Allergies Allergies: Coded Allergies: NO KNOWN ALLERGIES (Unverified , 02/21/19) Home Meds Active Scripts Atenolol (Atenolol) 25 Mg Tab, 1 TAB PO Q.h.s. for 15 Days, #15 TAB 5 Refills Prov:KISHORE RIDER MD 11/22/24 Nitroglycerin (Nitrostat) 0.4 Mg Sub, 0.4 MG SL Q6HP PRN, #20 INJ Prov:ARACELIS OMER PAC 07/27/24 Losartan Potassium (Losartan Potassium) 50 Mg Tab, 1 TAB PO DAILY, #30 TAB 5 Refills Prov:FRANCIS ESPARZA MD 03/19/24 Ibuprofen (Ibuprofen) 800 Mg Tab, 1 TAB PO TID PRN, #30 TAB 0 Refills Prov:RADHA DILLARD 02/23/24 Pantoprazole Sodium Sesquihydr (Protonix) 40 Mg Tab, 40 MG PO DAILY for 10 Days, #10 TAB Prov:DENVER HIGGINS MD 10/24/23 Meloxicam (Meloxicam) 7.5 Mg Tab, 1 TAB PO DAILYP PRN for 30 Days, #30 TAB 0 Refills Prov:AMI ABBOTT MANAGEMENT DEVELOPMENT SPECIALIST 07/13/23 Azithromycin (Azithromycin) 500 Mg Tab, 1 TAB PO DAILY, #5 TAB Prov:ED MANSFIELD 04/10/23 Promethazine-Dm (Promethazine Dm 6.25-15 mg/5Ml) 1 Mery Mery, 5 ML PO TID, #160 ML Prov:ED MANSFIELD 04/10/23 Docusate Sodium (Colace) 100 Mg Cap, 1 CAP PO BID for 10 Days, #20 CAP As needed for constipaton Prov:MINERVA SAMUELS MANAGEMENT DEVELOPMENT SPECIALIST 12/27/22 Ondansetron Odt 4MG Tab (ZOFRAN PO) 4 Mg Tb, 1 TAB PO Q8HR, #20 TAB ODT TAB-DISSOLVE IN MOUTH, THEN SWALLOW as needed for nausea vomit Prov:MINERVA SAMUELS MANAGEMENT DEVELOPMENT SPECIALIST 12/27/22 Hydrocodone-Acetaminophen (Hydrocodone Bitartrate/AC 5-325 mg) 1 Tab Tab, 1 TAB PO Q6HR, #12 TAB as needed for pain Prov:MINERVA SAMUELS MANAGEMENT DEVELOPMENT SPECIALIST 12/27/22 Information Source: Patient Mode of Arrival: Ambulatory Severity: Moderate Timing: Days Duration: Since onset Prehospital treatment: None Past Medical History PAST MEDICAL HISTORY: Angina, Anxiety, HTN Surgical History: , Tubal Ligation 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 all POLICY CANCELLATION CLERK Hx Family History Family History: Reviewed,noncontributory to illness, Family hx of DM Social History Smoker: Non-Smoker Alcohol: Denies ETOH Use Drugs: Denies Drug Use Lives In: Home Constitutional: denies: chills, diaphoresis, fatigue, fever, malaise, sweats, weakness, others EENTM: denies: blurred vision, double vision, ear bleeding, ear discharge, ear drainage, ear pain, ear ringing, eye pain, eye redness, hearing loss, mouth pain, mouth swelling, nasal discharge, nose bleeding, nose congestion, nose pain, photophobia, tearing, throat pain, throat swelling, voice changes, others Respiratory: denies: cough, hemoptysis, orthopnea, SOB at rest, shortness of breath, SOB with excertion, stridor, wheezing, others Cardiovascular: reports: chest pain, others (chest pressure ); denies: dizzy spells, diaphoresis, Dyspnea on exertion, edema, irregular heart beat, left arm pain, lightheadedness, palpitations, PND, syncope Gastrointestinal: denies: abdomen distended, abdominal pain, blood streaked bowels, constipated, diarrhea, dysphagia, difficulty swallowing, hematemesis, melena, nausea, poor appetite, poor fluid intake, rectal bleeding, rectal pain, vomiting, others Genitourinary: denies: abnormal vagina bleeding, burning, dyspareunia, dysuria, flank pain, frequency, hematuria, incontinence, pain, , vagina discharge, urgency, others Neurological: reports: headache; denies: dizziness, fainting, left sided numbness, left sided weakness, numbness, paresthesia, pre-existing deficit, right sided numbness, right sided weakness, seizure, speech problems, tingling, tremors, weakness, others Musculoskeletal: denies: back pain, gout, joint pain, joint swelling, muscle pain, muscle stiffness, neck pain, others Integumetry: denies: bruises, change in color, change in hair/nails, dryness, laceration, lesions, lumps, rash, wounds, others Allergic/Immunocompromised: denies: Difficulty Healing, Frequent Infections, Hives, Itching, others Hematologic/Lymphatic: denies: anemia, blood clots, easy bleeding, easy bruising, swollen glands, others Endocrine: denies: excessive hunger, excessive sweating, excessive thirst, excessive urination, flushing, intolerance to cold, intolerance to heat, unexplained weight gain, unexplained weight loss, others Psychiatric: reports: anxiety; denies: bipolar disorder, depression, hopeless, panic disorder, schizophrenia, sleepless, suicidal, others All Other Systems: Reviewed and Negative Physical Exam General Appearance: Mild Distress (Moderate distress due to anxiety at time of evaluation.), Normal HEENT: Normal ENT Inspection, Pharynx Normal, TMs Normal Neck: Full Range of Motion, Non-Tender, Normal, Normal Inspection Respiratory: Chest Non-Tender, Lungs Clear, No Accessory Muscle Use, No Respiratory Distress, Normal Breath Sounds, Other (Unable to appreciate any additional pain on palpation. Patient states most of her pain has resolved.) Cardiovascular: No Edema, No JVD, No Murmur, No Gallop, Normal Peripheral Pulses, Regular Rate/Rhythm Breast Exam: Deferred Gastrointestinal: No Organomegaly, Non Tender, No Pulsatile Mass, Normal Bowel Sounds, Soft Genitalia: Deferred Pelvic: Deferred Rectal: Deferred Extremities: No calf tenderness, Normal capillary refill, Normal inspection, Normal range of motion, Non-tender, No pedal edema Neurologic: Alert Cerebellar Function: NOT DONE Reflexes: NOT DONE Skin: Dry, Normal Color, Warm Lymphatic: No Adenopathy Was a procedure done? Was a procedure done?: No Differential Dx Considerations may include: Asthma, Anxiety, acute coronary syndrome X-Ray, Labs, Meds, VS Vital Signs Date Time Temp Pulse Resp B/P (MAP) Pulse Ox O2 Delivery O2 Flow Rate FiO2 12/23/24 18:45 98.7 95 18 158/[address] [address] Ph: [phone] DIAGNOSTIC IMAGING Diagnostic Imaging Report : [id number] Signed [facility]: [id number] UNIT: [id number] : 1980 LOC: ER ROOM / BED: / AGE / SEX: 44 / F ADM STATUS: REG ER SERVICE 57 ORDERING PHYSICIAN: ARACELIS OMER PAC PROCEDURE(s): CXRP - CHEST PORTABLE REASON: Chest pain ORDER NUMBER(s): [id number], ACCESSION NUMBER(s): [id number] EXAM: XY CHEST PORTABLE HISTORY: Chest pain TECHNIQUE: 1 view of the chest COMPARISON: XY CHEST TWO VIEWS ROUTINE on DOS: 11/22/24 FINDINGS/IMPRESSION: LUNGS: No pleural effusion, consolidation, or pneumothorax MEDIASTINUM: Unremarkable BONES: No acute osseous abnormality OTHER: None X-Ray, Labs, Meds, VS Comment All studies performed the ED were evaluated by me personally. EKG was unremarkable for any acute cardiac concerns. Chest x-ray was unremarkable for any consolidation or any intrapulmonary concerns. Patient responded well to medication dispensed. Advised patient that she should talk to her primary care provider about possible anxiety concerns. Images Reviewed?: Images reviewed and evaluated by me Time of 1ST Reevaluation: 21:30 Reevaluation 1ST: Improved Consultation: PCP Patient Education/Counseling: Diagnosis, Treatment Family Education/Counseling: Diagnosis, Treatment, No Family Present Medical Screening: No EMC Exist At This Time SEPSIS Sepsis Screen Date sepsis recognized/suspect: Dec 23, 2024 Time Sepsis recognized/suspect: 1844 Recent Procedure: No On Antibiotic Therapy: No Respiratory Rate >20: No Heart Rate >90: No Temp<36 C (96.8 F) or >38.3 C: No SBP <90 or MAP <65 mmHG: No New Acute Mental Status Change: No Is the patient on CPAP, BIPAP,: No Physician Orders Chest Portable (12/23/24 18:58) Vital Signs Date Time Temp Pulse Resp B/P (MAP) Pulse Ox O2 Delivery O2 Flow Rate FiO2 12/23/24 18:45 98.7 95 18 158/84 97 98.7 Departure 1 Departure Time of Disposition: 21:30 Impression: Primary Impression: Anxiety Disposition: HOME / SELF CARE / HOMELESS Condition: Stable Additional Instructions: Advise utilizing medication as needed for symptomatic relief in additionally, patient should follow up with the primary care provider for discussions related to today's visit. e-Prescriptions Alprazolam (Xanax) 0.5 Mg Tb 1 TAB PO Q8HP PRN, #10 TAB Prov: ARACELIS OMER PAC 12/23/24 Discharged With: Self, Friend Critical Care Note Critical Care Time?: No Stability Stability form required: No Heart Score Heart Score: Heart Score Response (Comments) Value History N/A 0 EKG N/A 0 Age N/A 0 Risk Factors N/A 0 Troponin N/A 0 Total 0 I personally scribed for ARACELIS OMER PAC ([email or web address]) on 12/23/24 at 19:20. Electr onically submitted by Pat Nichols ([email or web address]). I personally scribed for ARACELIS OMER PAC ([email or web address]) on 12/23/24 at 20:16. Kady ctronically submitted by Pat Nichols ([email or web address]). ARACELIS OMER PAC Dec 23, 2024 19:20
--- NOTE | 2024-12-23 19:38 | DVH ---
EXAM: XY CHEST PORTABLE HISTORY: Chest pain TECHNIQUE: 1 view of the chest COMPARISON: XY CHEST TWO VIEWS ROUTINE on DOS: 11/22/24 FINDINGS/IMPRESSION: LUNGS: No pleural effusion, consolidation, or pneumothorax MEDIASTINUM: Unremarkable BONES: No acute osseous abnormality OTHER: None
[2024-12-23] MEDS ORDERED: ALPR0.5T PO (21:31)
== END 2024-12-23 22:30 | disposition home or self-care (01) ==
LOC: ER 18:47
DX: F41.9 Anxiety disorder, unspecified (principal); R07.89 Other chest pain; I10 Essential (primary) hypertension; J45.909 Unspecified asthma, uncomplicated; Z79.899 Other long term (current) drug therapy; Z98.51 Tubal ligation status; Z98.890 Other specified postprocedural states
CPT/HCPCS: 71045; 93005